=== PATIENT | male | born 1975 | race Caucasian/White ===

== ENCOUNTER 2023-02-26 16:55 | Emergency (ER) | payer OTHER, SELFPAY ==
[2023-02-26 17:04] VITALS: BP 152/101
[2023-02-26 17:28] LABS: % Basophils 0.7 % (0-2); % Eosinophils 1.5 % (0-6); % Immature Granulocytes 0.5 % (0-0.5); % Lymphocytes 27.6 % (20.5-51.1); % Monocytes 7.1 % (1.7-9.3); % Neutrophils 62.6 % (42.2-75.2); Absolute Basophils 0.1 10^3/uL (0-0.2); Absolute Eosinophils 0.1 10^3/uL (0-0.7); Absolute Lymphocytes 2.4 10^3/uL (1.2-3.4); Absolute Monocytes 0.6 10^3/uL (0.1-0.6); Absolute Neutrophils 5.5 10^3/uL (1.4-6.5); Hematocrit 44.6 % (39.0-52.0); Hemoglobin 15.3 g/dL (13.0-18.0); Mean Corp Hgb Conc. 34.3 g/dL (33.0-37.0); Mean Corpuscular Volume 84.6 fL (80.0-94.0); Mean Platelet Volume 11.3 fL (7.4-10.4); Nucleated Red Blood Cells % 0 % (-); Platelet Count 213 10^3/uL (130-400); Red Blood Cell Count 5.27 10^6/uL (4.70-6.10); Red Cell Dist. Width 13.8 % (11.5-14.5); White Blood Cell Count 8.7 10^3/uL (4.8-10.8)
[2023-02-26 17:42] LABS: ALT (SGPT) 39 U/L (0-50); AST (SGOT) 28 U/L (17-59); Alkaline Phosphatase 77 U/L (38-126); Blood Urea Nitrogen 20 mg/dl (9-20); Calcium 9.6 mg/dl (8.4-10.2); Carbon Dioxide 28 mmol/L (22-30); Chloride 102 mmol/L (98-107); Glucose 219 mg/dl (70-99); Potassium 4.2 mmol/L (3.5-5.1); Sodium 137 mmol/L (135-145); Total Bilirubin 0.6 mg/dl (0.2-1.3); Total Protein 6.9 g/dl (6.3-8.2); eGFR > 60.00
[2023-02-26 17:52] LABS: Troponin I < 0.012 ng/ml
[2023-02-26 18:32] VITALS: BP 171/108
--- NOTE | 2023-02-26 18:46 | ED.GENMED ---
History of Present Illness
General
Chief Complaint: Chest Pain
Source: patient and spouse
Time Seen by Provider: 02/26/23 18:38
Travel History
Have you had any contact with someone who has COVID-19?: No
Do you have any symptoms of coronavirus? Fever > 100 degrees, chills, cough, shortness of breath, sore throat, loss of taste or smell, muscle aches, or headache?: No
History of Present Illness
History of Present Illness:
This patient is a 47-year-old male presents to the emergency department complaints of left-sided chest pain that he noticed when he awoke at approximately 8 AM. The pain has been constant throughout the day is described as 'tender', not abrupt in
onset, not ripping or tearing quality. There are no exacerbating relieving factors and it is not pleuritic in nature. He denies associated dyspnea, leg swelling, back pain, neck pain, headache, dizziness, numbness, tingling, abdominal pain, or
other complaints.
Past History
Past History
ED Past Medical History: CVA (Presumed right MCA stroke August 2022), HTN, Hypercholesterolemia, IDDM, Psychiatric (Anxiety) and Other (Diverticulosis / diverticulitis)
ED Past Surgical History: None
Social History
Tobacco: Non-smoker
Alcohol: None
Drug: None
Personal: Single
Living: with family
Employment: Employed
Family History
Family History: Diabetes
Phy Exam
Physical Exam
Physical Exam:
GENERAL: Alert , in no apparent distress, pleasant, extremely well-appearing
EYE: pupils equal and reactive
NECK: Supple, no significant adenopathy.
ENT: o/p clr, mmm.
CARDIAC: Regular rate and rhythm .
LUNGS: Clear breath sounds bilaterally, no acute respiratory distress, no wheezes/rales/rhonchi
ABDOMEN: Soft, without focal tenderness, no r/g, no cvat
NEUROLOGICAL: Alert and oriented, no focal neuro deficits
SKIN: Warm and dry, skin intact.
MUSCULOSKELETAL: No edema, well perfused.
PSYCH: Normal and appropriate interaction.
Scores
Heart Score for Chest Pain Patients
STEMI patient?: Not applicable
Course
Orders/Labs/Results
Orders:
Orders
02/26/23 16:57
Electrocardiogram (*1) Urgent
Reason for Study: Chest Pain
EKG- Treatment ONCE
02/26/23 17:15
Complete Blood Count/With Diff Urgent
Comprehensive Metabolic Panel Urgent
Troponin I Urgent
02/26/23 18:45
CXR2 [CR Chest - 2 Views ] Stat
Comment:
Reason For Exam: cp
02/26/23 20:04
Troponin I Urgent
Abnormal Lab Results
02/26/23
17:15
MPV 11.3 H fL
(7.4-10.4)
Glucose 219 H mg/dl
(70-99)
02/26/23 17:15
02/26/23 17:15
Vital Signs
Initial and Last Documented VS:
Initial Vital Signs
Temp Pulse Resp BP Pulse Ox
99.4 F 100 16 152/101 100
02/26/23 17:04 02/26/23 17:04 02/26/23 17:04 02/26/23 17:04 02/26/23 17:04
Last Documented Vital Signs
Temp Pulse Resp BP Pulse Ox
99.4 F 99 20 148/94 99
02/26/23 17:04 02/26/23 18:32 02/26/23 18:32 02/26/23 20:40 02/26/23 20:40
*Critical Care Note
Total Time (30-74mins, 75-104mins- exclusive of procedures): Not Applicable
Update Note
Update Note:
Patient presents to the Emergency Department with chest pain
Number and Complexity of Problems Addressed at the Encounter
� Chronic conditions affecting care:
� Acute Exacerbation and/or Progression of Chronic Illness:
� Differential Diagnosis includes: But not limited to ACS, pleurisy, musculoskeletal pain, pericarditis, etc. etc.
Amount and/or Complexity of Data to be Reviewed and Analyzed
� I performed an independent evaluation of and my interpretation is:
EKG: Read by me, normal sinus rhythm, normal rate, normal axis, no ischemia
CT:
Xrays:
Laboratory Studies:
Other:
� Review of other/old records reveals:
� Clinical information was obtained by an independent historian: who is at bedside
� Prescriptions/Medications Considered but not given:
� Further testing considered but not performed:
Risk of Complications and/or Morbidity or Mortality of Patient Management
� Social determinants of health affecting care:
� Discussion with other providers (PCP, Hospitalists, Consultants, etc):
� Escalation of care including admission/observation vs risk of discharge considered:
ED Attending Note
-
Portions of this chart may have been created with voice recognition software.� Occasional wrong word or��sound alike� substitutions may have occurred due to the inherent limitations of voice recognition software.
Discharge Plan
Departure
Patient Disposition: Home (Routine Discharge)
Patient with high blood pressure during this ER visit?: Yes
Condition: Good
Discharge Problem:
Chest pain
Instructions: Chest Pain PCP Follow Up, BLOOD PRESSURE
Prescriptions:
No Action
atorvastatin 40 MG tablet
40 mg PO HS
metoprolol tartrate 100 mg tablet
100 mg PO BID
insulin aspart U-100 [Novolog FlexPen U-100 Insulin] 100 unit/mL (3 mL) insulin pen
0 sliding scale dose SC MEALS
Patient Comments:
Patient is taking 30-40 units with each meal, patient is targeting a blood sugar of 83 at home
Levemir FlexPen 100 unit/mL (3 mL) insulin pen
60 unit SC BID
valsartan-hydrochlorothiazide 320-12.5 mg tablet
1 tab PO DAILY
Jardiance 10 mg tablet
10 mg PO DAILY
acetaminophen 500 mg Tablet
1,000 mg PO DAILYPRN PRN (Reason: mild pain)
ciclopirox 8 % solution
1 applic TOPICAL DAILY
clopidogrel 75 mg Tablet
75 mg PO DAILY Qty: 21 0RF
Rx Instructions:
after this then stop
aspirin 81 mg Tablet,Delayed Release (Dr/Ec)
81 mg PO DAILY Qty: 0 0RF
clindamycin HCl 150 mg capsule
450 mg PO TID 10 Days Qty: 90 0RF
fluticasone propionate [24 Hour Allergy Relief] 50 mcg/actuation spray,suspension
1 spray intranasal DAILY Qty: 16 0RF
Referrals:
Ja Pierce MD [Family Provider] - Follow up in 2-3 days
Activity Restrictions/Additional Instructions:
IF YOU DEVELOP RECURRENT/WORSENING/NEW CHEST PAIN, FEVER, VOMITING, TROUBLE BREATHING, OR OTHER WORRISOME SIGNS, GO TO THE ER IMMEDIATELY!
Interventions
Interventions:
*Risk Screen - Suicide Last Done: 02/26/23 18:32
*General Assessment Last Done: 02/26/23 18:32
*Neglect/Abuse Screening Last Done: 02/26/23 18:32
ED- Fall Risk Assessment Last Done: 02/26/23 18:32
*ED COVID-19 Vaccine History Last Done: 02/26/23 17:04
*Nursing Disposition Last Done: 02/26/23 20:42
ED- Cardiac Assessment Last Done: 02/26/23 18:32
Discharge Date and Time
Discharge Date/Time: 02/26/23 20:45
[2023-02-26 20:35] LABS: Troponin I < 0.012 ng/ml
[2023-02-26 20:40] VITALS: BP 148/94
== END 2023-02-26 20:45 | disposition home or self-care (01) ==
LOC: EMR 16:55
PROVIDERS: EMERGENCY PHYSICIAN Emergency Medicine; FAMILY PHYSICIAN Internal Medicine
DX: R07.89 Other chest pain (principal); I10 Essential (primary) hypertension; E78.00 Pure hypercholesterolemia, unspecified; E11.9 Type 2 diabetes mellitus without complications; F41.9 Anxiety disorder, unspecified; K57.90 Diverticulosis of intestine, part unspecified, without perforation or abscess without bleeding; Z79.4 Long term (current) use of insulin; Z88.0 Allergy status to penicillin; Z91.048 Other nonmedicinal substance allergy status; Z79.82 Long term (current) use of aspirin
CPT/HCPCS: 99284; 71046; 80053; 84484; 85025; 93005

== ENCOUNTER 2023-05-21 20:59 | Emergency (ER) | payer OTHER, SELFPAY ==
[2023-05-21] VITALS (11 sets, daily range): BP systolic 139–217; BP diastolic 98–141
[2023-05-21 21:55] LABS: % Basophils 0.6 % (0-2); % Eosinophils 2.6 % (0-6); % Immature Granulocytes 0.4 % (0-0.5); % Lymphocytes 17.9 % (20.5-51.1); % Neutrophils 72.5 % (42.2-75.2); Absolute Basophils 0.1 10^3/uL (0-0.2); Absolute Eosinophils 0.3 10^3/uL (0-0.7); Absolute Lymphocytes 1.9 10^3/uL (1.2-3.4); Absolute Monocytes 0.6 10^3/uL (0.1-0.6); Absolute Neutrophils 7.7 10^3/uL (1.4-6.5); Hematocrit 47.2 % (39.0-52.0); Hemoglobin 15.6 g/dL (13.0-18.0); Mean Corp Hgb Conc. 33.1 g/dL (33.0-37.0); Mean Corpuscular Hgb 28.7 pg (27.0-31.0); Mean Corpuscular Volume 86.9 fL (80.0-94.0); Mean Platelet Volume 11.7 fL (7.4-10.4); Nucleated Red Blood Cells % 0 % (-); Platelet Count 189 10^3/uL (130-400); Red Blood Cell Count 5.43 10^6/uL (4.70-6.10); Red Cell Dist. Width 13.3 % (11.5-14.5); White Blood Cell Count 10.6 10^3/uL (4.8-10.8)
[2023-05-21 22:12] LABS: ALT (SGPT) 32 U/L (0-50); AST (SGOT) 26 U/L (17-59); Albumin 4.5 g/dl (3.5-5.0); Alkaline Phosphatase 77 U/L (38-126); Blood Urea Nitrogen 21 mg/dl (9-20); Calcium 9.8 mg/dl (8.4-10.2); Carbon Dioxide 28 mmol/L (22-30); Chloride 97 mmol/L (98-107); Glucose 379 mg/dl (70-99); Potassium 4.5 mmol/L (3.5-5.1); Sodium 135 mmol/L (135-145); Total Bilirubin 0.5 mg/dl (0.2-1.3); Total Protein 7.5 g/dl (6.3-8.2); eGFR > 60.00
[2023-05-21 22:15] LABS: Troponin I < 0.012 ng/ml
--- NOTE | 2023-05-21 22:34 | ED.GENMED ---
History of Present Illness
General
Chief Complaint: Headache
Source: patient and records
Exam Limitations: none
Time Seen by Provider: 05/21/23 21:41
Nursing documentation reviewed up to this point in time: agreed with
Travel History
Have you had any contact with someone who has COVID-19?: No
Do you have any symptoms of coronavirus? Fever > 100 degrees, chills, cough, shortness of breath, sore throat, loss of taste or smell, muscle aches, or headache?: No
History of Present Illness
History of Present Illness:
48-year-old male with a past medical history of hypertension, hyperlipidemia, diabetes, IBS, history of CVA who presents to the emergency department for evaluation of headache. Patient reports onset of symptoms gradually this evening at around 6�8
PM. He reports headache has becomes quite severe. Located mainly in occipital region radiates to the top of the head; he describes a throbbing sensation 'like a heartbeat in my head.' No clear triggering or relieving factors noted. He reports
some associated nausea but denies any vomiting. He reports some mild dizziness. He denies any change in his vision or speech. Denies any focal weakness, numbness, tingling in his extremities. He does note that his blood pressure was severely
elevated when he checked it in the setting of this headache; he reports that he is on metoprolol twice daily and has been compliant without missed doses. He denies any history of trauma to his head tonight but does note that he had a mechanical
fall with occipital head trauma 2 weeks ago.
Past History
Past History
ED Past Medical History: CVA (Presumed right MCA stroke August 2022), HTN, Hypercholesterolemia, IDDM, Psychiatric (Anxiety) and Other (Diverticulosis / diverticulitis)
ED Past Surgical History: None
Social History
Tobacco: Non-smoker
Alcohol: None
Drug: None
Personal: Single
Living: with family
Employment: Employed
Family History
Family History: Diabetes
Review of Systems
Review of Systems
All Other Systems: ROS reviewed and negative except as documented in HPI and ROS
Constitutional: Denies fever or chills
EENT: Denies sore throat or runny nose
Respiratory: Denies cough or trouble breathing
Cardiac: Denies chest pain or palpitations
ABD/GI: Reports nausea; Denies abdominal pain, vomiting or diarrhea
: Denies flank pain
Musculoskeletal: Denies neck pain or back pain
Neurological: Reports dizzy and headache; Denies weakness or numbness
Phy Exam
Physical Exam
Physical Exam:
General: Awake, alert, oriented x3; he is sitting up very comfortably in the bed and does not appear to be in any acute distress
Head: Normocephalic, atraumatic
Eyes: Conjunctiva normal, EOMI, pupils equal round and reactive to light bilaterally
Throat: Airway intact, handling secretions
Neck: Trachea midline, supple without meningismus
Lungs: Clear to auscultation bilaterally, no wheezing, rales, rhonchi
Heart: Tachycardia with regular rhythm, no murmurs, gallops, or rubs
Neuro: Cranial nerves intact 2 through 12, speech is fluid without dysarthria or aphasia, no limb ataxia, motor and sensory function intact and symmetric upper and lower extremities
Skin: no rash
Extremities: No edema in extremities, warm and well-perfused
Scores
Heart Failure Risk
Heart Failure Risk Score: Not Applicable
Heart Score for Chest Pain Patients
STEMI patient?: Not applicable
Withdrawal Assessment of Alcohol
Withdrawal Assessment Completed?: Not applicable
Course
Orders/Labs/Results
Orders:
Orders
05/21/23 21:01
Electrocardiogram (*1) Urgent
Reason for Study: Chest Pain
EKG- Treatment ONCE
05/21/23 21:41
CT Head W/o Iv Contrast Urgent
Comment:
Reason For Exam: headache, severe HTN
05/21/23 21:42
Electrocardiogram (*1) Urgent
Reason for Study: Hypertension, Benign
EKG- Treatment ONCE
05/21/23 21:46
Complete Blood Count/With Diff Urgent
Comprehensive Metabolic Panel Urgent
Troponin I Urgent
05/21/23 22:22
0.9% Sodium Chloride 1000 ml [Nss] 1,000 ml IV BOLUS
Labetalol HCl [Trandate] 10 mg IV NOW STA
05/21/23 22:43
Diphenhydramine [Benadryl] 25 mg IV NOW STA
Insulin Aspart [NOVOLOG vial] 5 units SC NOW STA
Ketorolac [Toradol] 15 mg IV NOW STA
Metoclopramide [Reglan] 10 mg IV NOW STA
05/21/23 22:48
Metoprolol [Lopressor] 100 mg PO NOW STA
Abnormal Lab Results
05/21/23 05/21/23
21:46 23:43
MPV 11.7 H fL
(7.4-10.4)
Absolute Neuts (auto) 7.7 H 10^3/uL
(1.4-6.5)
Lymphocytes % 17.9 L %
(20.5-51.1)
Chloride 97 L mmol/L
(98-107)
BUN 21 H mg/dl
(9-20)
Glucose 379 H mg/dl
(70-99)
POC Glucose 304 H mg/dl
(70-99)
05/21/23 21:46
05/21/23 21:46
Vital Signs
Initial and Last Documented VS:
Initial Vital Signs
Temp Pulse Resp BP Pulse Ox
36.9 C 104 22 217/141 99
05/21/23 21:02 05/21/23 21:02 05/21/23 21:02 05/21/23 21:02 05/21/23 21:02
Last Documented Vital Signs
Temp Pulse Resp BP Pulse Ox
36.9 C 97 19 165/102 98
05/21/23 21:02 05/21/23 22:45 05/21/23 22:45 05/21/23 22:58 05/21/23 22:45
MDM/Problems Addressed
Differential Diagnosis Includes:
Tension headache, migraine headache, intracranial hemorrhage including subarachnoid hemorrhage and subdural/epidural hematoma, symptomatic hypertension
MDM/Problems Addressed:
48-year-old male presents for evaluation of gradual onset headache that has become quite severe�started few hours prior to arrival and has been constant. No recent trauma to his head but did have minor fall 2 weeks ago during which he hit his head.
He has been hypertensive with this headache. He arrived was severely hypertensive to 217/141�this was improved to the 190s over 100s on my assessment. He is also mildly tachycardic but the rest of his vitals are within acceptable range. His
physical exam is as documented. Will plan to check basic labs. Will check EKG given his severe hypertension. Will check CT head. Will provide fluids and treat symptomatically. Provide some labetalol for hypertension. Monitor closely reassess
after the above.
Labs reviewed: CBC unremarkable, CMP shows significant hyperglycemia at 379 fortunately with no signs of DKA. Could be that partly his headache is due to dehydration with significant hyperglycemia. He is currently receiving IV fluids and will
provide some low-dose insulin. Awaiting results of CT head.
CT head shows no acute pathology; patient receiving medications now will assess response. With negative CT within 6 hours of symptom onset this is sufficient to rule out subarachnoid hemorrhage, no signs of subdural/epidural hematoma. He has no
signs or symptoms to suggest meningitis. No risk factors for cerebral venous thrombosis in fact patient is on antiplatelets. While his blood pressure was high he has not had any seizures, change in mental status, visual disturbances or vomiting,
no neurologic deficits to suggest that this is PRES. Suspect his headache is likely multifactorial likely some degree of dehydration with his severe hyperglycemia could be some component of hypertension contributing, also likely tension headache he
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 Continue to monitor.
Clinical reassessment patient's blood pressure significantly improving, glucose improving. He says he is feeling much better headache resolved. He feels comfortable going home at this point; regarding his hyperglycemia he plans to follow-up with
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
him. He will follow-up with his primary doctor to discuss his blood pressure advised to keep track of the next few days at home. We spoke about return precautions and all questions were answered.
Chronic conditions affecting care:
Diabetes, hypertension
Chronic conditions affecting care: DM and HTN
Acute Exacerbation and/or Progression of Chronic Illness:
Acute exacerbation of hypertension managed with labetalol
Acute exacerbation of diabetes with severe hyperglycemia�treated with insulin and fluids
Acute Exacerbation and/or Progression of Chronic Illness: DM and HTN
*Radiology
Radiology exam reviewed: radiology read reviewed
*Pulse Oximetry
Patient hypoxic: no
*EKG
Interpreted by ED Provider?: Yes
Heart Rate: 101
Rate: tachycardiac
Rhythm: sinus and sinus tachycardia
[place]: normal axis
Interval: normal interval
QRS Pattern: normal QRS
Ischemia: non-specific ST changes
*Critical Care Note
Total Time (30-74mins, 75-104mins- exclusive of procedures): Not Applicable
Data Reviewed
Review of Other/Old Records Reveals: Labs and Records
Source: patient and records
ED Attending Note
-
Portions of this chart may have been created with voice recognition software.� Occasional wrong word or��sound alike� substitutions may have occurred due to the inherent limitations of voice recognition software.
Discharge Plan
Departure
Patient Disposition: Home (Routine Discharge)
Date of Disposition: 05/21/23
Time of Disposition: 23:47
Patient with high blood pressure during this ER visit?: Yes
Discharge Problem:
Headache, Acute hyperglycemia, Hypertension
Instructions: High Blood Sugar, Adult (DC), Headache, Adult (DC), BLOOD PRESSURE
Prescriptions:
No Action
atorvastatin 40 MG tablet
40 mg PO HS
metoprolol tartrate 100 mg tablet
100 mg PO BID
insulin aspart U-100 [Novolog FlexPen U-100 Insulin] 100 unit/mL (3 mL) insulin pen
0 sliding scale dose SC MEALS
Patient Comments:
Patient is taking 30-40 units with each meal, patient is targeting a blood sugar of 83 at home
Levemir FlexPen 100 unit/mL (3 mL) insulin pen
60 unit SC BID
valsartan-hydrochlorothiazide 320-12.5 mg tablet
1 tab PO DAILY
Jardiance 10 mg tablet
10 mg PO DAILY
acetaminophen 500 mg Tablet
1,000 mg PO DAILYPRN PRN (Reason: mild pain)
ciclopirox 8 % solution
1 applic TOPICAL DAILY
clopidogrel 75 mg Tablet
75 mg PO DAILY Qty: 21 0RF
Rx Instructions:
after this then stop
aspirin 81 mg Tablet,Delayed Release (Dr/Ec)
81 mg PO DAILY Qty: 0 0RF
clindamycin HCl 150 mg capsule
450 mg PO TID 10 Days Qty: 90 0RF
fluticasone propionate [24 Hour Allergy Relief] 50 mcg/actuation spray,suspension
1 spray intranasal DAILY Qty: 16 0RF
Activity Restrictions/Additional Instructions:
Thank you for visiting the Emergency Department at [facility].
1. Please schedule a follow up appointment as directed. Call first thing tomorrow morning to make an appointment.
2. If indicated, please take your medications as instructed and indicated on discharge paperwork.
3. If any of your symptoms do not improve, or persist, or become more severe within 6-12 hours, please return to the emergency department for further care.
4. Please return to the emergency department if you develop a headache, neck pain/stiffness, fever greater than 100.4F, chest pain, shortness of breath, persistent nausea, vomiting, slurred speech, difficulty walking, numbness/tingling, weakness,
signs of infection or any other symptoms that are worrisome to you.
Please call [phone] if you have any questions.
Interventions
Interventions:
*Risk Screen - Suicide Last Done: 05/21/23 21:02
*General Assessment Last Done: 05/21/23 22:37
*Neglect/Abuse Screening Last Done: 05/21/23 21:02
ED- Fall Risk Assessment Last Done: 05/21/23 23:49
*ED COVID-19 Vaccine History Last Done: 05/21/23 23:49
*Nursing Disposition Last Done: 05/21/23 23:48
ED- Neurological Assessment Last Done: 05/21/23 22:36
Discharge Date and Time
Print Language: MAURITANIAN
[2023-05-21] MEDS: NSS 1000 IV (22:42)
[2023-05-21] MEDS: TRANDATE 10 MG IV (22:43)
[2023-05-21] MEDS: NOVOLOG vial 5 UNITS SC (22:54)
[2023-05-21] MEDS: TORADOL 15 MG IV (22:55)
[2023-05-21] MEDS: BENADRYL 25 MG IV (22:55)
[2023-05-21] MEDS: REGLAN 10 MG IV (22:55)
[2023-05-21] MEDS: LOPRESSOR 100 MG PO (22:58)
[2023-05-21 23:45] LABS: Glucose - Point of Care 304 mg/dl (70-99)
== END 2023-05-21 23:52 | disposition home or self-care (01) ==
LOC: EMR 20:59
PROVIDERS: EMERGENCY PHYSICIAN Emergency Medicine; FAMILY PHYSICIAN Internal Medicine
DX: R51.9 Headache, unspecified (principal); E11.65 Type 2 diabetes mellitus with hyperglycemia; I10 Essential (primary) hypertension; E78.00 Pure hypercholesterolemia, unspecified; K58.9 Irritable bowel syndrome, unspecified; Z86.73 Personal history of transient ischemic attack (TIA), and cerebral infarction without residual deficits
CPT/HCPCS: 99285; 96374; 96375 ×3; 96372; 96361; 70450; 80053; 82962; 84484; 85025; 93005

== ENCOUNTER 2024-01-01 04:34 | Emergency (ER) | payer OTHER, SELFPAY ==
[2024-01-01 04:46] VITALS: BP 226/144
[2024-01-01 04:53] VITALS: BMI 36.7
[2024-01-01] MEDS: ZOFRAN 4 MG IV (05:12)
[2024-01-01 05:15] VITALS: BP 203/114
[2024-01-01 05:17] LABS: % Basophils 0.6 % (0-2); % Eosinophils 2.6 % (0-6); % Immature Granulocytes 0.3 % (0-0.5); % Lymphocytes 30.8 % (20.5-51.1); % Monocytes 8.5 % (1.7-9.3); % Neutrophils 57.2 % (42.2-75.2); Absolute Basophils 0.1 10^3/uL (0-0.2); Absolute Eosinophils 0.3 10^3/uL (0-0.7); Absolute Monocytes 0.8 10^3/uL (0.1-0.6); Absolute Neutrophils 5.5 10^3/uL (1.4-6.5); Hematocrit 49.4 % (39.0-52.0); Hemoglobin 16.4 g/dL (13.0-18.0); Mean Corp Hgb Conc. 33.2 g/dL (33.0-37.0); Mean Corpuscular Hgb 28.8 pg (27.0-31.0); Mean Corpuscular Volume 86.8 fL (80.0-94.0); Nucleated Red Blood Cells % 0 % (-); Platelet Count 204 10^3/uL (130-400); Red Blood Cell Count 5.69 10^6/uL (4.70-6.10); Red Cell Dist. Width 13.2 % (11.5-14.5); White Blood Cell Count 9.6 10^3/uL (4.8-10.8)
[2024-01-01 05:39] LABS: ALT (SGPT) 43 U/L (0-50); AST (SGOT) 37 U/L (17-59); Albumin 4.1 g/dl (3.5-5.0); Alkaline Phosphatase 61 U/L (38-126); Blood Urea Nitrogen 23 mg/dl (9-20); Calcium 9.2 mg/dl (8.4-10.2); Carbon Dioxide 25 mmol/L (22-30); Chloride 104 mmol/L (98-107); Estimated Creatinine Clearance > 125 ml/min; Glucose 145 mg/dl (70-99); Potassium 4.1 mmol/L (3.5-5.1); Sodium 140 mmol/L (135-145); Total Bilirubin 0.3 mg/dl (0.2-1.3); Total Protein 7.1 g/dl (6.3-8.2); eGFR > 60.00
[2024-01-01 05:42] LABS: Troponin I < 0.012 ng/ml
[2024-01-01 05:44] VITALS: BP 213/115
[2024-01-01 06:00] VITALS: BP 160/104
[2024-01-01 07:00] VITALS: BP 169/99
[2024-01-01 08:00] VITALS: BP 169/108
--- NOTE | 2024-01-01 09:33 | ED.GENMED ---
History of Present Illness
General
Chief Complaint: Blood Pressure Problem
Source: patient and spouse
Exam Limitations: none
Time Seen by Provider: 01/01/24 06:10
Nursing documentation reviewed up to this point in time: agreed with
History of Present Illness
History of Present Illness:
48-year-old male with past medical history as documented presents to the emergency room for evaluation of hypertension and headache. Patient reports that yesterday he had a scheduled appointment with his die cast die maker to follow-up on his blood
sugars. He says that while he was in the office he was noted to be hypertensive over 200. He was referred to the urgent care by his die cast die maker. He went to urgent care and says that his blood pressure had improved and he was recommended to
follow-up with his primary care physician. He has an appointment scheduled for today (01/01/2024) at 9 AM to discuss blood pressure management. He says he had been on metoprolol and valsartan for blood pressure management but this was discontinued
at some point in the past. He says that overnight last night he woke up and had a bad headache and he checked his blood pressure and noted that it was over 200. He says that he had a leftover dose of his metoprolol and so he took a dose of this
and came to the emergency to be assessed. Since arrival in the emergency room he says his headache has improved. He did have some nausea initially and apparently received some Zofran in triage and this seems to have resolved. He denies any chest
pain. He denies any shortness of breath. Denies any dizziness. Denies any change in his vision or speech. Denies any focal weakness or numbness.
Past History
Past History
ED Past Medical History: CVA (Presumed right MCA stroke August 2022), HTN, Hypercholesterolemia, IDDM, Psychiatric (Anxiety) and Other (Diverticulosis / diverticulitis)
ED Past Surgical History: None
Social History
Tobacco: Non-smoker
Alcohol: None
Drug: None
Personal: Single
Living: with family
Employment: Employed
Family History
Family History: Diabetes
Review of Systems
Review of Systems
All Other Systems: ROS reviewed and negative except as documented in HPI and ROS
Constitutional: Denies fever or chills
Respiratory: Denies trouble breathing
Cardiac: Denies chest pain, palpitations or syncope
ABD/GI: Reports nausea; Denies abdominal pain or vomiting
: Denies flank pain
Musculoskeletal: Denies neck pain or back pain
Neurological: Reports headache; Denies dizzy, weakness or numbness
Phy Exam
Physical Exam
Physical Exam:
General: Awake, alert, oriented x3; no acute distress
Head: Normocephalic, atraumatic
Eyes: Conjunctiva normal, EOMI, pupils equal round and reactive to light bilaterally
Throat: Airway intact, handling secretions
Neck: Trachea midline, supple without meningismus
Lungs: Clear to auscultation bilaterally, no wheezing, rales, rhonchi
Heart: Regular rate and rhythm, no murmurs, gallops, or rubs
Abd: Soft, non distended, nontender
Neuro: Cranial nerves intact 2 through 12, speech fluent no dysarthria or aphasia, no limb ataxia, motor and sensory function intact and symmetric proximally and distally in the upper and lower extremities, ambulatory with normal gait and no ataxia
Extremities: No edema in extremities, equal pulses in all extremities
Scores
Heart Failure Risk
Heart Failure Risk Score: Not Applicable
Heart Score for Chest Pain Patients
STEMI patient?: Not applicable
Withdrawal Assessment of Alcohol
Withdrawal Assessment Completed?: Not applicable
Course
Orders/Labs/Results
Orders:
Orders
01/01/24 04:35
ECG [Electrocardiogram (*1)] Urgent
Reason for Study: Chest Pain
EKG- Treatment ONCE
01/01/24 05:05
Complete Blood Count/With Diff Urgent
Comprehensive Metabolic Panel Urgent
Troponin I Urgent
01/01/24 05:09
Ondansetron Injectable [Zofran] 4 mg .ROUTE .STK-MED ONE
01/01/24 05:11
CT Head W/o Iv Contrast Urgent
Comment:
Reason For Exam: HTN w/ headache
Ondansetron Injectable [Zofran] 4 mg IV NOW STA
Abnormal Lab Results
01/01/24
05:05
MPV 12.0 H fL
(7.4-10.4)
Absolute Monos (auto) 0.8 H 10^3/uL
(0.1-0.6)
BUN 23 H mg/dl
(9-20)
Glucose 145 H mg/dl
(70-99)
01/01/24 05:05
01/01/24 05:05
Vital Signs
Initial and Last Documented VS:
Initial Vital Signs
Temp Pulse Resp BP Pulse Ox
36.9 C 100 22 226/144 100
01/01/24 04:46 01/01/24 04:46 01/01/24 04:46 01/01/24 04:46 01/01/24 04:46
Last Documented Vital Signs
Temp Pulse Resp BP Pulse Ox
36.9 C 88 19 169/108 100
01/01/24 04:46 01/01/24 08:30 01/01/24 08:30 01/01/24 08:00 01/01/24 08:15
MDM/Problems Addressed
Differential Diagnosis Includes:
Hypertension
MDM/Problems Addressed:
48-year-old male presents to the emergency room for hypertension associated with headache last night that has improved. Initially severely hypertensive to 226/144 and had some tachycardia in triage as well; blood pressure improved to 169/108 on my
assessment. He did take a dose of his metoprolol prior to coming to the emergency room. He had lab work sent in triage including a CBC and a CMP which were unremarkable. He had an EKG which showed sinus rhythm, troponin was undetectable. He had
a CT head which showed no acute pathology. His symptoms have improved as has his blood pressure. He has an appointment scheduled for 9 AM to discuss long-term management of his blood pressure with his primary care physician. At this point he is
stable for discharge and he will go directly to his appointment with his primary doctor. Spoke about return precautions all questions answered.
Chronic conditions affecting care:
Hypertension
Acute Exacerbation and/or Progression of Chronic Illness:
Acute hypertension managed as above
Acute Exacerbation and/or Progression of Chronic Illness: HTN
*Radiology
Radiology exam reviewed: radiology read reviewed
*Pulse Oximetry
Patient hypoxic: no
*EKG
Interpreted by ED Provider?: Yes
Heart Rate: 89
Rate: normal
Rhythm: sinus
[place]: normal axis
Interval: normal interval
QRS Pattern: normal QRS
Ischemia: non-specific ST changes
*Critical Care Note
Total Time (30-74mins, 75-104mins- exclusive of procedures): Not Applicable
Data Reviewed
Review of Other/Old Records Reveals: Labs and Records
Source: patient and spouse
Patient Management
Social determinants of health affecting care: Strong social support
ED Attending Note
-
Portions of this chart may have been created with voice recognition software.� Occasional wrong word or��sound alike� substitutions may have occurred due to the inherent limitations of voice recognition software.
Discharge Plan
Departure
Patient Disposition: Home (Routine Discharge)
Date of Disposition: 01/01/24
Time of Disposition: 08:37
Patient with high blood pressure during this ER visit?: Yes
Discharge Problem:
Hypertensive urgency
Instructions: High Blood Pressure (DC)
Prescriptions:
No Action
atorvastatin 40 MG tablet
40 mg PO HS
metoprolol tartrate 100 mg tablet
100 mg PO BID
insulin aspart U-100 [Novolog FlexPen U-100 Insulin] 100 unit/mL (3 mL) insulin pen
0 sliding scale dose SC MEALS
Patient Comments:
Patient is taking 30-40 units with each meal, patient is targeting a blood sugar of 83 at home
Levemir FlexPen 100 unit/mL (3 mL) insulin pen
60 unit SC BID
valsartan-hydrochlorothiazide 320-12.5 mg tablet
1 tab PO DAILY
Jardiance 10 mg tablet
10 mg PO DAILY
acetaminophen 500 mg Tablet
1,000 mg PO DAILYPRN PRN (Reason: mild pain)
aspirin 81 mg Tablet,Delayed Release (Dr/Ec)
81 mg PO DAILY Qty: 0 0RF
fluticasone propionate [24 Hour Allergy Relief] 50 mcg/actuation spray,suspension
1 spray intranasal DAILY Qty: 16 0RF
Referrals:
Shala Drake PA-C [Family Provider] - 01/01/24 9:00 am
Activity Restrictions/Additional Instructions:
Thank you for visiting the Emergency Department at [facility].
1. Please schedule a follow up appointment as directed. Call first thing tomorrow morning to make an appointment.
2. If indicated, please take your medications as instructed and indicated on discharge paperwork.
3. If any of your symptoms do not improve, or persist, or become more severe within 6-12 hours, please return to the emergency department for further care.
4. Please return to the emergency department if you develop a headache, neck pain/stiffness, fever greater than 100.4F, chest pain, shortness of breath, persistent nausea, vomiting, slurred speech, difficulty walking, numbness/tingling, weakness,
signs of infection or any other symptoms that are worrisome to you.
Please call [phone] if you have any questions.
Interventions
Interventions:
*Risk Screen - Suicide Last Done: 01/01/24 04:46
*General Assessment Last Done: 01/01/24 04:56
*Neglect/Abuse Screening Last Done: 01/01/24 04:46
ED- Fall Risk Assessment Last Done: 01/01/24 05:24
*ED COVID-19 Vaccine History Last Done: 01/01/24 04:56
*Nursing Disposition Last Done: 01/01/24 08:44
ED- Cardiac Assessment Last Done: 01/01/24 05:24
ED- Neurological Assessment Last Done: 01/01/24 05:24
ED- Pulmonary Assessment Last Done: 01/01/24 05:24
Discharge Date and Time
Discharge Date/Time: 01/01/24 08:45
Print Language: CZECH
== END 2024-01-01 08:45 | disposition home or self-care (01) ==
LOC: EMR 04:34
PROVIDERS: Emergency Medicine; EMERGENCY PHYSICIAN Emergency Medicine; FAMILY PHYSICIAN Physician Assistant
DX: I16.0 Hypertensive urgency (principal); E11.9 Type 2 diabetes mellitus without complications; E78.00 Pure hypercholesterolemia, unspecified; Z86.73 Personal history of transient ischemic attack (TIA), and cerebral infarction without residual deficits
CPT/HCPCS: 99284; 96374; 70450; 80053; 84484; 85025; 93005

== ENCOUNTER 2024-03-17 10:01 | Emergency (ER) | payer OTHER, SELFPAY ==
[2024-03-17] VITALS (7 sets, daily range): BP systolic 158–198; BP diastolic 97–120; BMI 36.7
[2024-03-17 10:43] LABS: COVID-19 Antigen Negative (Negative)
[2024-03-17 11:34] LABS: % Basophils 0.8 % (0-2); % Eosinophils 2.8 % (0-6); % Immature Granulocytes 0.3 % (0-0.5); % Lymphocytes 23.2 % (20.5-51.1); % Monocytes 6.4 % (1.7-9.3); % Neutrophils 66.5 % (42.2-75.2); Absolute Basophils 0.1 10^3/uL (0-0.2); Absolute Eosinophils 0.2 10^3/uL (0-0.7); Absolute Lymphocytes 1.7 10^3/uL (1.2-3.4); Absolute Monocytes 0.5 10^3/uL (0.1-0.6); Absolute Neutrophils 4.8 10^3/uL (1.4-6.5); Hematocrit 45.7 % (39.0-52.0); Hemoglobin 15.7 g/dL (13.0-18.0); Mean Corp Hgb Conc. 34.4 g/dL (33.0-37.0); Mean Corpuscular Hgb 28.8 pg (27.0-31.0); Mean Corpuscular Volume 83.9 fL (80.0-94.0); Mean Platelet Volume 11.6 fL (7.4-10.4); Nucleated Red Blood Cells % 0 % (-); Platelet Count 191 10^3/uL (130-400); Red Blood Cell Count 5.45 10^6/uL (4.70-6.10); Red Cell Dist. Width 13.4 % (11.5-14.5); White Blood Cell Count 7.2 10^3/uL (4.8-10.8)
[2024-03-17 11:49] LABS: ALT (SGPT) 33 U/L (0-50); AST (SGOT) 27 U/L (17-59); Albumin 3.9 g/dl (3.5-5.0); Alkaline Phosphatase 68 U/L (38-126); Blood Urea Nitrogen 18 mg/dl (9-20); Calcium 9.1 mg/dl (8.4-10.2); Carbon Dioxide 27 mmol/L (22-30); Chloride 100 mmol/L (98-107); Estimated Creatinine Clearance > 125 ml/min; Glucose 260 mg/dl (70-99); Potassium 4.5 mmol/L (3.5-5.1); Sodium 135 mmol/L (135-145); Total Bilirubin 0.9 mg/dl (0.2-1.3); Total Protein 6.7 g/dl (6.3-8.2); eGFR > 60.00
[2024-03-17 12:17] LABS: Troponin I < 0.012 ng/ml
[2024-03-17] MEDS: TYLENOL 1000 MG PO (13:23)
[2024-03-17 16:04] LABS: Troponin I < 0.012 ng/ml
--- NOTE | 2024-03-17 16:47 | ED.GENMED ---
History of Present Illness
General
Chief Complaint: Chest Pain
Source: patient and spouse
Time Seen by Provider: 03/17/24 12:46
History of Present Illness
History of Present Illness:
This a 48-year-old male who presents with headache, chest pain, lightheadedness, fatigue since yesterday. The patient states started last night. He states that started in early evening because when he went to a friend's house to watch the Super
Bowl he soreness laying on the couch. He does have a history of hypertension but states he did not take his pills today. Patient also has a history of diabetes. No fevers. No motor weakness. No vomiting.
Past History
Past History
ED Past Medical History: CVA (Presumed right MCA stroke August 2022), HTN, Hypercholesterolemia, IDDM, Psychiatric (Anxiety) and Other (Diverticulosis / diverticulitis)
ED Past Surgical History: None
Social History
Tobacco: Non-smoker
Alcohol: None
Drug: None
Personal: Single
Living: with family
Employment: Employed
Family History
Family History: Diabetes
Phy Exam
Physical Exam
Physical Exam:
CONSTITUTIONAL Patient alert and oriented to person, place and time. Well-appearing. Vital signs reviewed.
HEAD atraumatic, normocephalic.
EYES eyelids normal to inspection, Extraocular muscles intact, Conjunctiva normal, Sclera normal.
NECK normal range of motion, Trachea midline, no jugular venous distention.
RESPIRATORY CHEST No respiratory distress noted, Chest expansion equal, Bilateral breath sounds clear.
CARDIOVASCULAR regular rate and rhythm, Heart sounds normal.
ABDOMEN abdomen nontender, Bowel sounds normal. No distention.
BACK normal inspection, no obvious deformities
UPPER EXTREMITY range of motion normal, Motor strength normal, no cyanosis, no edema.
LOWER EXTREMITY range of motion normal, Motor strength normal, no cyanosis, no edema.
NEURO Speech normal, No focal motor deficits, Gonsalo coma scale 15, Memory normal, Cranial Nerves intact to screening exam. No pronator drift
SKIN skin warm, dry, and normal in color.
Scores
Heart Score for Chest Pain Patients
STEMI patient?: No
History: Slightly or Non-Suspicious
ECG: Nonspecific Repolarization
Age: >45 - <65 years
Risk Factors: >/= 3 Risk Factors or History of CAD
Troponin: </= Normal Limit
Heart Score for Chest Pain Patients: 4
Heart Score Risk: 20.3% MACE over next 6 weeks
Course
Orders/Labs/Results
Orders:
Orders
03/17/24 10:04
Electrocardiogram (*1) Urgent
Reason for Study: Chest Pain
03/17/24 10:05
EKG- Treatment ONCE
03/17/24 10:15
COVID-19 Antigen Urgent
Source: Nasal Swab
Influenza A+B Rapid Molecular Urgent
CHRISTINA Source: Nasal Swab
Specimen Description:
03/17/24 11:23
Complete Blood Count/With Diff Urgent
Comprehensive Metabolic Panel Urgent
TSH Reflex To Free T4 Urgent
Troponin I Urgent
03/17/24 13:02
CT Head W/o Iv Contrast Urgent
Comment:
Reason For Exam: WRIGHT, uncontrolled HTN
CR Chest - 2 Views Urgent
Comment:
Reason For Exam: CP
03/17/24 13:03
Acetaminophen [Tylenol] 1,000 mg PO NOW STA
03/17/24 15:17
Electrocardiogram (*1) Urgent
Reason for Study: Chest Pain
EKG- Treatment ONCE
Vital Signs- Treatment ONCE
Frequency: Once
03/17/24 15:25
Troponin I Urgent
03/17/24 16:56
Metoprolol [Lopressor] 100 mg PO NOW STA
03/17/24 17:06
Valsartan [Diovan] 320 mg PO NOW STA
Abnormal Lab Results
03/17/24
11:23
MPV 11.6 H fL
(7.4-10.4)
Glucose 260 H mg/dl
(70-99)
03/17/24 11:23
03/17/24 11:23
Vital Signs
Initial and Last Documented VS:
Initial Vital Signs
Temp Pulse Resp BP Pulse Ox
98.0 F 101 20 198/120 99
03/17/24 10:08 03/17/24 10:08 03/17/24 10:08 03/17/24 10:08 03/17/24 10:08
Last Documented Vital Signs
Temp Pulse Resp BP Pulse Ox
98.0 F 93 13 167/109 100
03/17/24 10:08 03/17/24 16:45 03/17/24 16:45 03/17/24 16:00 03/17/24 16:45
MDM/Problems Addressed
MDM/Problems Addressed:
Chest pain, headache, acute uncontrolled hypertension, acute hyperglycemia
*Pulse Oximetry
Patient hypoxic: no
*EKG
Interpreted by ED Provider?: Yes
Interpretation: abnormal
Rate: normal
Rhythm: sinus
[place]: normal axis
QRS Pattern: normal QRS
Ischemia: no ischemia
*Direct Sales Professional Interpretation
Rate: normal
Interpretation: normal
Rhythm: sinus
*Critical Care Note
Total Time (30-74mins, 75-104mins- exclusive of procedures): Not Applicable
Data Reviewed
Review of Other/Old Records Reveals: Labs (Prior labs reviewed)
Source: patient and spouse
Prescriptions/Medications Considered But Not Given:
Considered IV antihypertensives but patient has not taken his medications today. Will prescribe his medications but advised that is imperative he has follow-up tomorrow for repeat blood pressure evaluation. He may need additional agents.
Patient Management
Escalation/DeEscalation of care consider admission/obs:
Troponin x [address]KG [address] negative. Okay for discharge but strongly encouraged close outpatient follow-up for blood pressure management
Update Note
Update Note:
Lengthy discussion with the patient. Counseled on importance of starting to walk and exercise. Proper diet. Proper follow-up. Patient agrees.
ED Attending Note
-
Portions of this chart may have been created with voice recognition software.� Occasional wrong word or��sound alike� substitutions may have occurred due to the inherent limitations of voice recognition software.
Discharge Plan
Departure
Patient Disposition: Home (Routine Discharge)
Date of Disposition: 03/17/24
Time of Disposition: 16:47
Patient with high blood pressure during this ER visit?: Yes
Discharge Problem:
Chest pain, Headache, Uncontrolled hypertension
Instructions: Chest Pain CBC Follow Up, BLOOD PRESSURE
Prescriptions:
New
pantoprazole [Protonix] 40 mg tablet,delayed release (DR/EC)
40 mg PO DAILY Qty: 30 0RF
Rx Instructions:
Please take 30 minutes prior to eating or drinking anything in the morning.
No Action
atorvastatin 40 MG tablet
40 mg PO HS
metoprolol tartrate 100 mg tablet
100 mg PO BID
insulin aspart U-100 [Novolog FlexPen U-100 Insulin] 100 unit/mL (3 mL) insulin pen
0 sliding scale dose SC MEALS
Patient Comments:
Patient is taking 30-40 units with each meal, patient is targeting a blood sugar of 83 at home
Levemir FlexPen 100 unit/mL (3 mL) insulin pen
60 unit SC BID
valsartan-hydrochlorothiazide 320-12.5 mg tablet
1 tab PO DAILY
Jardiance 10 mg tablet
10 mg PO DAILY
acetaminophen 500 mg Tablet
1,000 mg PO DAILYPRN PRN (Reason: mild pain)
aspirin 81 mg Tablet,Delayed Release (Dr/Ec)
81 mg PO DAILY Qty: 0 0RF
fluticasone propionate [24 Hour Allergy Relief] 50 mcg/actuation spray,suspension
1 spray intranasal DAILY Qty: 16 0RF
Referrals:
Shala Drake PA-C [Family Provider] -
Activity Restrictions/Additional Instructions:
Your blood pressure was elevated while in the Emergency Department, please have your doctor re-evaluate it in the next 48 hours as untreated hypertension may lead to serious complications.
Please see your doctor or cardiology next 2 to 3 days for follow-up and reevaluation to reassess your blood pressure. Return immediately for worsening symptoms, vomiting, headache, weakness of any kind or any other concerns
Interventions
Interventions:
*Risk Screen - Suicide Last Done: 03/17/24 11:15
*General Assessment Last Done: 03/17/24 11:15
*Neglect/Abuse Screening Last Done: 03/17/24 11:15
*Nursing Disposition Last Done: 03/17/24 17:41
ED- Cardiac Assessment Last Done: 03/17/24 11:15
ED- Neurological Assessment Last Done: 03/17/24 11:15
Discharge Date and Time
Discharge Date/Time: 03/17/24 17:45
Print Language: FAROESE
[2024-03-17] MEDS: LOPRESSOR 100 MG PO (17:28)
[2024-03-17] MEDS: DIOVAN 320 MG PO (17:28)
[2024-03-17 21:07] LABS: TSH Reflex To Free T4 1.81 uIU/ml (0.47-4.68)
== END 2024-03-17 17:45 | disposition home or self-care (01) ==
LOC: EMR 10:01
PROVIDERS: Student in an Organized Health Care Education/Training Program; EMERGENCY PHYSICIAN Emergency Medicine; FAMILY PHYSICIAN Physician Assistant
DX: R07.9 Chest pain, unspecified (principal); I10 Essential (primary) hypertension; E11.9 Type 2 diabetes mellitus without complications; E78.00 Pure hypercholesterolemia, unspecified; Z79.899 Other long term (current) drug therapy
CPT/HCPCS: 99285; 70450; 71046; 80053; 84443; 84484; 85025; 87502; 87811; 93005

== ENCOUNTER 2024-04-07 06:37 | Emergency (ER) | payer OTHER, SELFPAY ==
[2024-04-07 06:39] VITALS: BP 218/133
[2024-04-07 06:52] LABS: Glucose - Point of Care 103 mg/dl (70-99)
[2024-04-07 07:05] LABS: % Basophils 0.7 % (0-2); % Eosinophils 3.2 % (0-6); % Immature Granulocytes 0.2 % (0-0.5); % Lymphocytes 33.9 % (20.5-51.1); % Monocytes 10.1 % (1.7-9.3); % Neutrophils 51.9 % (42.2-75.2); Absolute Basophils 0.1 10^3/uL (0-0.2); Absolute Eosinophils 0.3 10^3/uL (0-0.7); Absolute Lymphocytes 2.8 10^3/uL (1.2-3.4); Absolute Monocytes 0.8 10^3/uL (0.1-0.6); Absolute Neutrophils 4.3 10^3/uL (1.4-6.5); Hemoglobin 15.7 g/dL (13.0-18.0); Mean Corp Hgb Conc. 32.7 g/dL (33.0-37.0); Mean Corpuscular Volume 88.6 fL (80.0-94.0); Mean Platelet Volume 10.9 fL (7.4-10.4); Nucleated Red Blood Cells % 0 % (-); Platelet Count 170 10^3/uL (130-400); Red Blood Cell Count 5.42 10^6/uL (4.70-6.10); Red Cell Dist. Width 14.2 % (11.5-14.5); White Blood Cell Count 8.3 10^3/uL (4.8-10.8)
--- NOTE | 2024-04-07 07:10 | ED.GENMED ---
History of Present Illness
General
Chief Complaint: Blood Sugar Problem
Source: patient and spouse
Exam Limitations: none
Time Seen by Provider: 04/07/24 06:59
History of Present Illness
History of Present Illness:
48yoM with a history of insulin-dependent type 2 diabetes, hypertension, and hyperlipidemia presenting for evaluation of hypoglycemia. heard his Dexcom beeping this morning around 6 AM due to low blood sugar. His sugar was measuring 69 at
that time. woke him up and gave him 1-1/2 containers of orange juice. The blood sugar did not seem to improve so they came to the ED for evaluation. Patient reports some dizziness and blurry vision immediately upon waking up this morning.
The symptoms have since resolved. The Dexcom is not reading his blood sugar as 120. He is otherwise asymptomatic and denies any fevers, vomiting, headache, chest pain, shortness of breath. Patient takes 80 units of Basaglar in the morning, 20
units of Basaglar in the evening, and 20 units of short acting insulin with meals. He also takes Jardiance. He had a small dinner last night and gave himself both the 20 units of long acting and short acting insulin at 10pm last night.
Past History
Past History
ED Past Medical History: CVA (Presumed right MCA stroke August 2022), HTN, Hypercholesterolemia, IDDM, Psychiatric (Anxiety) and Other (Diverticulosis / diverticulitis)
ED Past Surgical History: None
Social History
Tobacco: Non-smoker
Alcohol: None
Drug: None
Personal: Single
Living: with family
Employment: Employed
Family History
Family History: Diabetes
Phy Exam
General Physical Exam
General Presentation: well appearing and no apparent distress
General age: appears stated age
General Skin: warm and dry
General Habitus: normal
General Mental: alert
ENT Exam
ENT Exam: normocephalic
Cardiovascular Exam
Cardiovascular Exam: regular rate/rhythm and no murmur
Pulmonary Exam
Pulmonary Exam: lungs clear, no respiratory distress, no rales, no crackles and no rhonchi
Neurological Exam
Neurological Exam: alert
Gonsalo Coma Scale
Eye Opening: Spontaneous
Verbal Response: Oriented
Motor Response: Obeys Commands
GCS Total Score: 15
Skin Exam
Skin Exam: normal color and warm/dry
Psychiatric Exam
Psychiatric Exam: normal mood/affect
Course
Orders/Labs/Results
Orders:
Orders
04/07/24 06:52
CMP [Comprehensive Metabolic Panel] Urgent
Complete Blood Count/With Diff Urgent
Abnormal Lab Results
04/07/24 04/07/24
06:50 06:52
MCHC 32.7 L g/dL
(33.0-37.0)
MPV 10.9 H fL
(7.4-10.4)
Absolute Monos (auto) 0.8 H 10^3/uL
(0.1-0.6)
Monocytes % 10.1 H %
(1.7-9.3)
BUN 26 H mg/dl
(9-20)
Glucose 110 H mg/dl
(70-99)
POC Glucose 103 H mg/dl
(70-99)
04/07/24 06:52
04/07/24 06:52
Vital Signs
Initial and Last Documented VS:
Initial Vital Signs
Temp Pulse Resp BP Pulse Ox
98.1 F 92 20 218/133 99
04/07/24 06:39 04/07/24 06:39 04/07/24 06:39 04/07/24 06:39 04/07/24 06:39
Last Documented Vital Signs
Temp Pulse Resp BP Pulse Ox
98.1 F 88 18 130/84 98
04/07/24 06:39 04/07/24 08:15 04/07/24 08:15 04/07/24 08:15 04/07/24 08:15
MDM/Problems Addressed
Differential Diagnosis Includes:
48yoM here with low blood sugar. Dexcom monitor was beeping this morning due to a glucose of 69. woke him up and gave him orange juice. Had some blurry vision/dizziness when his blood sugar was low which has resolved. Fingerstick glucose 103 in
triage. Dexcom reading a glucose of 120 on initial exam. He was hypertensive to 218/133 in triage. Remainder of vitals are normal. Exam reassuring. Differential diagnosis includes but is not limited to: hypoglycemia, dehydration, hypertensive urgency
Initial ED plan: Nursing staff provided peanut butter crackers to patient. Will check CBC, CMP, and monitor blood pressure.
*Critical Care Note
Total Time (30-74mins, 75-104mins- exclusive of procedures): Not Applicable
Update Note
Update Note:
Labs overall unremarkable. Glucose 110 on CMP. Blood pressure improved to 130/84 without intervention. Patient is asymptomatic on reassessment. Dexcom measuring glucose of 146. Patient is stable for discharge. He was advised to follow-up with
his surgery nurse to discuss if any insulin adjustments need to be made. He also has an appointment with his PCP scheduled in 2 days. ED return precautions discussed. Patient expressed understanding and is agreement with plan. He was
discharged in stable condition.
ED Attending Note
-
Portions of this chart may have been created with voice recognition software.� Occasional wrong word or��sound alike� substitutions may have occurred due to the inherent limitations of voice recognition software.
Discharge Plan
Departure
Patient Disposition: Home (Routine Discharge)
Date of Disposition: 04/07/24
Time of Disposition: 08:16
Patient with high blood pressure during this ER visit?: Yes
Discharge Problem:
Hypoglycemic episode in patient with diabetes mellitus
Instructions: Low Blood Sugar, Adult (DC)
Prescriptions:
No Action
atorvastatin 40 MG tablet
40 mg PO HS
metoprolol tartrate 100 mg tablet
100 mg PO BID
insulin aspart U-100 [Novolog FlexPen U-100 Insulin] 100 unit/mL (3 mL) insulin pen
0 sliding scale dose SC MEALS
Patient Comments:
Patient is taking 30-40 units with each meal, patient is targeting a blood sugar of 83 at home
Levemir FlexPen 100 unit/mL (3 mL) insulin pen
60 unit SC BID
valsartan-hydrochlorothiazide 320-12.5 mg tablet
1 tab PO DAILY
Jardiance 10 mg tablet
10 mg PO DAILY
acetaminophen 500 mg Tablet
1,000 mg PO DAILYPRN PRN (Reason: mild pain)
aspirin 81 mg Tablet,Delayed Release (Dr/Ec)
81 mg PO DAILY Qty: 0 0RF
fluticasone propionate [24 Hour Allergy Relief] 50 mcg/actuation spray,suspension
1 spray intranasal DAILY Qty: 16 0RF
pantoprazole [Protonix] 40 mg tablet,delayed release (DR/EC)
40 mg PO DAILY Qty: 30 0RF
Rx Instructions:
Please take 30 minutes prior to eating or drinking anything in the morning.
Referrals:
Shala Drake PA-C [Family Provider] -
Activity Restrictions/Additional Instructions:
Please call your surgery nurse today to discuss if there needs to be any adjustments to your insulin regimen.
Return to the ER with any new or worsening symptoms.
Interventions
Interventions:
*Risk Screen - Suicide Last Done: 04/07/24 06:39
*Neglect/Abuse Screening Last Done: 04/07/24 06:39
ED- Fall Risk Assessment Last Done: 04/07/24 07:03
*Nursing Disposition Last Done: 04/07/24 09:10
ED- Neurological Assessment Last Done: 04/07/24 07:03
Discharge Date and Time
Discharge Date/Time: 04/07/24 09:11
Print Language: WELSH
[2024-04-07 07:18] LABS: ALT (SGPT) 38 U/L (0-50); AST (SGOT) 29 U/L (17-59); Albumin 4.8 g/dl (3.5-5.0); Alkaline Phosphatase 55 U/L (38-126); Blood Urea Nitrogen 26 mg/dl (9-20); Calcium 9.8 mg/dl (8.4-10.2); Carbon Dioxide 25 mmol/L (22-30); Chloride 106 mmol/L (98-107); Glucose 110 mg/dl (70-99); Potassium 3.8 mmol/L (3.5-5.1); Sodium 141 mmol/L (135-145); Total Bilirubin 0.8 mg/dl (0.2-1.3); Total Protein 7.4 g/dl (6.3-8.2); eGFR > 60.00
[2024-04-07 08:15] VITALS: BP 130/84
== END 2024-04-07 09:11 | disposition home or self-care (01) ==
LOC: EMR 06:37
PROVIDERS: EMERGENCY PHYSICIAN Emergency Medicine; FAMILY PHYSICIAN Physician Assistant
DX: E11.649 Type 2 diabetes mellitus with hypoglycemia without coma (principal); I10 Essential (primary) hypertension; E78.00 Pure hypercholesterolemia, unspecified; E78.5 Hyperlipidemia, unspecified
CPT/HCPCS: 99283; 80053; 82962; 85025

== ENCOUNTER 2024-07-23 23:52 | Emergency (ER) | payer OTHER, SELFPAY ==
[2024-07-23 23:57] LABS: Glucose - Point of Care 74 mg/dl (70-99)
[2024-07-23 23:59] VITALS: BP 190/113
[2024-07-24 00:01] VITALS: BP 190/113
[2024-07-24 00:04] VITALS: BMI 35.5
[2024-07-24 00:35] LABS: % Basophils 0.6 % (0-2); % Immature Granulocytes 1.1 % (0-0.5); % Lymphocytes 33.8 % (20.5-51.1); % Monocytes 10.4 % (1.7-9.3); % Neutrophils 52.1 % (42.2-75.2); Absolute Basophils 0.1 10^3/uL (0-0.2); Absolute Eosinophils 0.2 10^3/uL (0-0.7); Absolute Immature Granulocytes 0.1 10^3/uL (0-0.05); Absolute Monocytes 0.9 10^3/uL (0.1-0.6); Absolute Neutrophils 4.6 10^3/uL (1.4-6.5); Hematocrit 43.6 % (39.0-52.0); Mean Corp Hgb Conc. 34.4 g/dL (33.0-37.0); Mean Corpuscular Volume 84.3 fL (80.0-94.0); Mean Platelet Volume 11.6 fL (7.4-10.4); Nucleated Red Blood Cells % 0 % (-); Platelet Count 209 10^3/uL (130-400); Red Blood Cell Count 5.17 10^6/uL (4.70-6.10); Red Cell Dist. Width 13.8 % (11.5-14.5); White Blood Cell Count 8.9 10^3/uL (4.8-10.8)
[2024-07-24 00:38] LABS: ALT (SGPT) 31 U/L (0-50); AST (SGOT) 24 U/L (17-59); Albumin 4.1 g/dl (3.5-5.0); Alkaline Phosphatase 63 U/L (38-126); Blood Urea Nitrogen 29 mg/dl (9-20); Calcium 10.2 mg/dl (8.4-10.2); Carbon Dioxide 27 mmol/L (22-30); Chloride 108 mmol/L (98-107); Estimated Creatinine Clearance 122 ml/min; Glucose 68 mg/dl (70-99); Potassium 3.5 mmol/L (3.5-5.1); Sodium 141 mmol/L (135-145); Total Bilirubin 0.4 mg/dl (0.2-1.3); Total Protein 7.1 g/dl (6.3-8.2); eGFR > 60.00
[2024-07-24 00:50] LABS: Glucose - Point of Care 167 mg/dl (70-99)
[2024-07-24 01:00] VITALS: BP 155/99
[2024-07-24 02:00] VITALS: BP 138/90
[2024-07-24 02:43] LABS: Glucose - Point of Care 206 mg/dl (70-99)
[2024-07-24 03:00] VITALS: BP 158/92
[2024-07-24 04:00] VITALS: BP 151/93
--- NOTE | 2024-07-24 04:17 | ED.GENMED ---
History of Present Illness
General
Chief Complaint: Blood Sugar Problem
Source: patient
Exam Limitations: none
Time Seen by Provider: 07/24/24 03:41
Nursing documentation reviewed up to this point in time: agreed with
History of Present Illness
History of Present Illness:
49-year-old male with a past medical history of hypertension, hyperlipidemia, type 2 diabetes, who presents emergency department today with concerns of a low blood sugar. Patient reports that he had dinner and gave himself his bolus dose of insulin
and his subsequent long-acting dose of insulin when he was alerted by his Dexcom later that his sugar was low. He started to feel a bit dizzy and foggy and reports that he could not think straight. His gave him a lot of orange juice and
symptoms started to improve. Upon arrival to emergency department, nursing staff notified me that patient appeared pale and did not feel well. Currently, he takes 20 units of short acting insulin with meals and takes 80 units of Basaglar in the
morning and 20 units in the evening. He also takes Jardiance. He denies abdominal pain, nausea, vomiting, chest pain, shortness of breath.
Past History
Past History
ED Past Medical History: CVA (Presumed right MCA stroke August 2022), HTN, Hypercholesterolemia, IDDM, Psychiatric (Anxiety) and Other (Diverticulosis / diverticulitis)
ED Past Surgical History: None
Social History
Tobacco: Non-smoker
Alcohol: None
Drug: None
Personal: Single
Living: with family
Employment: Employed
Family History
Family History: Diabetes
Review of Systems
Review of Systems
All Other Systems: ROS reviewed and negative except as documented in HPI and ROS
Phy Exam
Physical Exam
Physical Exam:
General: Patient is well appearing and in no acute distress; non-toxic
Skin: Warm and dry, no rashes or lesions
Head: Normocephalic, atraumatic
Eyes: Sclera non-icteric. EOMs intact.
Cardiac: Regular rate and rhythm, no murmurs
Peripheral Vascular: No lower extremity swelling or edema
Pulm: Normal respiratory effort, no wheezes, rales, or rhonchi
Abdomen: No abdominal tenderness to palpation
Neuro: CN II-XII intact, no focal neurologic deficits.
Psychiatric: Appropriate mood and affect.
Course
Orders/Labs/Results
Orders:
Orders
07/24/24 00:08
CMP [Comprehensive Metabolic Panel] Urgent
Complete Blood Count/With Diff Urgent
07/24/24 04:20
Electrocardiogram (*1) Urgent
Reason for Study: Vertigo / Dizzy
Abnormal Lab Results
07/24/24 07/24/24 07/24/24
00:08 00:47 02:42
MPV 11.6 H fL
(7.4-10.4)
Abs Immat Gran (auto) 0.1 H 10^3/uL
(0-0.05)
Absolute Monos (auto) 0.9 H 10^3/uL
(0.1-0.6)
Immature Gran % 1.1 H %
(0-0.5)
Monocytes % 10.4 H %
(1.7-9.3)
Chloride 108 H mmol/L
(98-107)
BUN 29 H mg/dl
(9-20)
Glucose 68 L mg/dl
(70-99)
POC Glucose 167 H mg/dl 206 H mg/dl
(70-99) (70-99)
07/24/24 00:08
07/24/24 00:08
Vital Signs
Initial and Last Documented VS:
Initial Vital Signs
Temp Pulse Resp BP Pulse Ox
98.3 F 91 20 190/113 98
07/23/24 23:59 07/23/24 23:59 07/23/24 23:59 07/23/24 23:59 07/23/24 23:59
Last Documented Vital Signs
Temp Pulse Resp BP Pulse Ox
98.3 F 78 20 151/93 97
07/23/24 23:59 07/24/24 04:15 07/24/24 01:41 07/24/24 04:00 07/24/24 04:17
MDM/Problems Addressed
Differential Diagnosis Includes:
ddx include dehydration, acute hypoglycemia, electrolyte derangement, medication side effect
MDM/Problems Addressed:
49-year-old male with a past medical history of hypertension, hyperlipidemia, type 2 diabetes, who presents emergency department today with concerns of a low blood sugar. Patient reports that he had off from work and was doing a lot of yard work
today when he went in to have a few hot dogs for dinner and he took his bolus dose and evening dose in close succession. He became light headed and dizzy and his dexcom read 'low'. His dexcom appears to be working appropriately. Pt had OJ and
feels much improved, his sugars have come up. Patient was observed with no additional symptoms. Suspect acute episode from close dosing of bolus and basal insulin as they were given very close together and basal insulin was not given at bedtime as
instructed by his bid analyst. Patient stable for discharge. Discussed calling his bid analyst later today for follow up appointment.
*Pulse Oximetry
SaO2: 97
Oxygen Mode of Delivery: Room air
*Critical Care Note
Total Time (30-74mins, 75-104mins- exclusive of procedures): Not Applicable
ED Attending Note
-
Portions of this chart may have been created with voice recognition software.� Occasional wrong word or��sound alike� substitutions may have occurred due to the inherent limitations of voice recognition software.
Discharge Plan
Departure
Patient Disposition: Home (Routine Discharge)
Date of Disposition: 07/24/24
Time of Disposition: 04:48
Patient with high blood pressure during this ER visit?: Yes
Condition: Good
Discharge Problem:
Hypoglycemia associated with diabetes
Instructions: Low Blood Sugar, Adult (DC), Type 2 Diabetes (DC), BLOOD PRESSURE
Prescriptions:
No Action
atorvastatin 40 MG tablet
40 mg PO HS
metoprolol tartrate 100 mg tablet
100 mg PO BID
insulin aspart U-100 [Novolog FlexPen U-100 Insulin] 100 unit/mL (3 mL) insulin pen
0 sliding scale dose SC MEALS
Patient Comments:
Patient is taking 30-40 units with each meal, patient is targeting a blood sugar of 83 at home
Levemir FlexPen 100 unit/mL (3 mL) insulin pen
60 unit SC BID
valsartan-hydrochlorothiazide 320-12.5 mg tablet
1 tab PO DAILY
Jardiance 10 mg tablet
10 mg PO DAILY
acetaminophen 500 mg Tablet
1,000 mg PO DAILYPRN PRN (Reason: mild pain)
aspirin 81 mg Tablet,Delayed Release (Dr/Ec)
81 mg PO DAILY Qty: 0 0RF
fluticasone propionate [24 Hour Allergy Relief] 50 mcg/actuation spray,suspension
1 spray intranasal DAILY Qty: 16 0RF
pantoprazole [Protonix] 40 mg tablet,delayed release (DR/EC)
40 mg PO DAILY Qty: 30 0RF
Rx Instructions:
Please take 30 minutes prior to eating or drinking anything in the morning.
Referrals:
Shala Drake PA-C [Family Provider, Internal Medicine]
Activity Restrictions/Additional Instructions:
Please call your bid analyst today to schedule a follow up appointment. Please call and let them know you were seen in the emergency department.
PLEASE CALL YOUR PRIMARY CARE PROVIDER SHOULD YOU DEVELOP CHEST PAIN, SHORTNESS OF BREATH, DIZZINESS, LIGHTHEADEDNESS, TREMORS, FAINTING SPELLS, LOSS OF VISION, OR ANY OTHER SIGNS OR SYMPTOMS WORRISOME TO YOU.
Interventions
Interventions:
*Risk Screen - Suicide Last Done: 07/23/24 23:59
*General Assessment Last Done: 07/23/24 23:59
*Neglect/Abuse Screening Last Done: 07/23/24 23:59
*ED- Fall Risk Assessment Last Done: 07/24/24 05:05
*ED COVID-19 Vaccine History Last Done: 07/23/24 23:59
*Nursing Disposition Last Done: 07/24/24 05:05
ED- Neurological Assessment Last Done: 07/24/24 02:36
Discharge Date and Time
Discharge Date/Time: 07/24/24 05:07
Print Language: SLOVENIAN
== END 2024-07-24 05:07 | disposition home or self-care (01) ==
LOC: EMR 23:52
PROVIDERS: EMERGENCY PHYSICIAN Emergency Medicine; FAMILY PHYSICIAN Physician Assistant
DX: E11.649 Type 2 diabetes mellitus with hypoglycemia without coma (principal); I10 Essential (primary) hypertension; E78.00 Pure hypercholesterolemia, unspecified; Z83.3 Family history of diabetes mellitus; Z86.73 Personal history of transient ischemic attack (TIA), and cerebral infarction without residual deficits
CPT/HCPCS: 99283; 80053; 82962; 85025; 93005

== ENCOUNTER 2024-09-19 03:17 | Emergency (ER) | payer OTHER, SELFPAY ==
[2024-09-19 03:23] VITALS: BP 204/119
[2024-09-19 03:23] LABS: Glucose - Point of Care 59 mg/dl (70-99)
[2024-09-19 03:57] VITALS: BP 163/97; BMI 36.1
[2024-09-19 04:09] LABS: Glucose - Point of Care 144 mg/dl (70-99)
--- NOTE | 2024-09-19 05:38 | ED.GENMED ---
History of Present Illness
General
Chief Complaint: Blood Sugar Problem
Source: patient and spouse
Exam Limitations: none
Time Seen by Provider: 09/19/24 05:00
Nursing documentation reviewed up to this point in time: agreed with
History of Present Illness
History of Present Illness:
Note:
CHIEF COMPLAINT(S)
Hypoglycemia.
HISTORY OF PRESENT ILLNESS
The patient is a 49-year-old male with a history of diabetes mellitus, presenting with hypoglycemia. The patient reported that his blood sugar 'kept going down and down,' which he attributed to a potentially excessive dose of regular insulin for the
meal he had. For dinner, the patient consumed shrimp with a ham sandwich. He took 20 units of insulin, which he believes may have been too high for the meal size. The patients trimmer and reinforcer, who is a nurse practitioner, manages his insulin
prescriptions. The patient checks his blood sugar regularly and noted it was around 175 mg/dL at approximately 8:00 PM before dinner. The patient did not recall the exact time he had dinner. He expressed concern about the potential of lower blood
sugar levels, but it was noted to be 153 mg/dL upon subsequent check and appears to be stabilizing. The patient denied any recent illness or pain.
SOCIAL DETERMINANTS AFFECTING HEALTH
The patient mentioned his is encouraging him to eat healthier.
PHYSICAL EXAM
General: Alert, no acute distress.
Skin: Warm, dry.
Head: Normocephalic, atraumatic.
Neck: Supple, trachea midline.
Eyes, Ears, Nose, Mouth, and Throat: Oral mucosa moist.
Cardiovascular: Normal peripheral perfusion, no edema.
Respiratory: Respirations are non-labored.
Gastrointestinal: Abdomen nondistended.
Back: Normal range of motion, normal alignment.
Musculoskeletal: Normal range of motion, normal strength.
Neurological: Alert and oriented to person, place, time, and situation, no focal neurological deficit observed.
Psychiatric: Cooperative, appropriate mood and affect.
PROBLEM LIST
Acute: Hypoglycemia secondary to possible excessive insulin dosing.
Chronic: Diabetes Mellitus.
PLAN
The patient will be monitored for an additional 30 minutes to ensure blood sugar levels do not decrease again. If blood sugar stabilizes, the patient can be discharged home. If not, further interventions may be needed. The patient is advised to
inform the medical team if he desires to eat anything during the observation period.
DIFFERENTIAL DIAGNOSIS
The Differential Diagnosis includes, in no particular order and is not limited to:
1. Excessive insulin dosage
2. Missed or inadequate carbohydrate intake
3. Unplanned physical activity
4. Renal insufficiency affecting insulin clearance
5. Adrenal insufficiency
6. Hepatic dysfunction
7. Insulinoma
8. Critical illness hypoglycemia
9. Sepsis
10. Medication interactions affecting insulin sensitivity or glucose metabolism.
Disposition:
SUMMARY OF ENCOUNTER
The patient is a 49-year-old male who presented to the emergency department with hypoglycemia. He recently began a low-carbohydrate diet as advised by his , but did not adjust his insulin regimen accordingly. The patient consumed shrimp cocktail
and a small sandwich, followed by administering 20 units of insulin. This resulted in a drop in blood sugar levels. Upon arrival at the emergency department, the patient was given orange juice, which helped raise his blood sugar to 144 mg/dL
initially, and after observation, it was stable at 150 mg/dL.
DISPOSITION
Patient to be discharged home.
ASSESSMENT
Hypoglycemia secondary to excessive insulin dosing in the context of dietary changes.
EMERGENCY TREATMENTS ADMINISTERED
Arthur juice administered to raise blood sugar levels.
PLAN
The patient will be discharged home. He is advised to follow up with his trimmer and reinforcer to reassess and adjust his insulin regimen, taking into consideration his dietary changes.
PATIENT EDUCATION AND COUNSELING
The patient was educated on adjusting insulin dosage in response to dietary intake. He was advised on proper insulin usage, especially when following a low-carbohydrate diet.
FOLLOW-UP INSTRUCTIONS
Patient is to follow up with his trimmer and reinforcer.
MEDICATION RECONCILIATION
The patient received orange juice to raise their blood sugar levels in the emergency department.
MEDICAL DECISION MAKING
- Number and Complexity of Problems Addressed: Chronic conditions affecting care, including diabetes mellitus and hypoglycemia secondary to possible excessive insulin dosing.
- Data:
- Category 1: The blood glucose levels were independently checked and reviewed.
- Category 2: N/A
- Category 3: Discussion of management with the patient regarding insulin usage and dietary changes.
- Risk: Consideration of Admission/Observation: Escalation of care including admission/observation was considered given the complexity and risk of the patients presenting complaint, exam findings, and underlying comorbidities. However, ultimately
the patient is deemed safe for outpatient management with close follow-up. Reasoning: Work-up reassuring, symptoms well-controlled upon reevaluation, stable vitals, patient is agreeable with discharge and reliable for follow-up.
DIAGNOSIS
- Hypoglycemia, ICD-10: E16.2
- Diabetes Mellitus, ICD-10: E11.9
Past History
Past History
ED Past Medical History: CVA (Presumed right MCA stroke August 2022), HTN, Hypercholesterolemia, IDDM, Psychiatric (Anxiety) and Other (Diverticulosis / diverticulitis)
ED Past Surgical History: None
Social History
Tobacco: Non-smoker
Alcohol: None
Drug: None
Personal: Single
Living: with family
Employment: Employed
Family History
Family History: Diabetes
Review of Systems
Review of Systems
Allergies reviewed?: Yes
All Other Systems: ROS reviewed and negative except as documented in HPI and ROS
Constitutional: Reports no symptoms
EENT: Reports no symptoms
Respiratory: Reports no symptoms
Cardiac: Reports no symptoms
ABD/GI: Reports no symptoms
: Reports no symptoms
Musculoskeletal: Reports no symptoms
Skin: Reports no symptoms
Neurological: Reports no symptoms
Endocrine: Reports no symptoms
Hematologic/Lymphatic: Reports no symptoms
Psychiatric: Reports anxiety
Phy Exam
General Physical Exam
General Presentation: well appearing and no apparent distress
General Skin: warm and dry
General Habitus: normal
General Mental: alert
General Hydration: appears well hydrated
ENT Exam
ENT Exam: EOMI, pharynx normal, neck supple and normocephalic
Eye Exam
Eye Exam: PERRL, cornea clear and conjunctiva normal
Cardiovascular Exam
Cardiovascular Exam: regular rate/rhythm, no edema, no murmur and normal peripheral pulses
Pulmonary Exam
Pulmonary Exam: lungs clear, no respiratory distress, no rales, no crackles, no rhonchi, no stridor, no wheezing and no cough
Gastrointestinal Exam
Gastrointestinal Exam: normal bowel sounds, non tender, soft, no organomegaly, no pulsatile mass and non distended
Neurological Exam
Neurological Exam: alert, oriented x3, no motor deficits and speech normal
Musculoskeletal Exam
Musculoskeletal Exam: full ROM and no edema
Skin Exam
Skin Exam: normal color, warm/dry, no rash and no petechia
Psychiatric Exam
Psychiatric Exam: normal mood/affect
Course
Orders/Labs/Results
Orders:
Abnormal Lab Results
09/19/24 09/19/24
03:20 04:07
POC Glucose 59 L mg/dl 144 H mg/dl
(70-99) (70-99)
Vital Signs
Initial and Last Documented VS:
Initial Vital Signs
Pulse Resp BP Pulse Ox
91 18 204/119 98
09/19/24 03:23 09/19/24 03:23 09/19/24 03:23 09/19/24 03:23
Last Documented Vital Signs
Pulse Resp BP Pulse Ox
91 18 163/97 97
09/19/24 03:23 09/19/24 03:23 09/19/24 03:57 09/19/24 05:00
*Pulse Oximetry
SaO2: 97
Oxygen Mode of Delivery: Room air
Patient hypoxic: no
*Critical Care Note
Total Time (30-74mins, 75-104mins- exclusive of procedures): Not Applicable
ED Attending Note
-
Portions of this chart may have been created with voice recognition software.� Occasional wrong word or��sound alike� substitutions may have occurred due to the inherent limitations of voice recognition software.
Discharge Plan
Departure
Patient Disposition: Home (Routine Discharge)
Date of Disposition: 09/19/24
Time of Disposition: 05:41
Patient with high blood pressure during this ER visit?: Yes
Discharge Problem:
Hypoglycemia
Instructions: Low Blood Sugar, Adult (DC), Diabetes Type 1, Adult (DC)
Prescriptions:
No Action
atorvastatin 40 MG tablet
40 mg PO HS
metoprolol tartrate 100 mg tablet
100 mg PO BID
insulin aspart U-100 [Novolog FlexPen U-100 Insulin] 100 unit/mL (3 mL) insulin pen
0 sliding scale dose SC MEALS
Patient Comments:
Patient is taking 30-40 units with each meal, patient is targeting a blood sugar of 83 at home
Levemir FlexPen 100 unit/mL (3 mL) insulin pen
60 unit SC BID
valsartan-hydrochlorothiazide 320-12.5 mg tablet
1 tab PO DAILY
Jardiance 10 mg tablet
10 mg PO DAILY
acetaminophen 500 mg Tablet
1,000 mg PO DAILYPRN PRN (Reason: mild pain)
aspirin 81 mg Tablet,Delayed Release (Dr/Ec)
81 mg PO DAILY Qty: 0 0RF
fluticasone propionate [24 Hour Allergy Relief] 50 mcg/actuation spray,suspension
1 spray intranasal DAILY Qty: 16 0RF
pantoprazole [Protonix] 40 mg tablet,delayed release (DR/EC)
40 mg PO DAILY Qty: 30 0RF
Rx Instructions:
Please take 30 minutes prior to eating or drinking anything in the morning.
Referrals:
[facility] [Outside]
UNKNOWN - PT DOES,NOT KNOW [Family Provider]
Activity Restrictions/Additional Instructions:
Please follow-up with your trimmer and reinforcer to possibly adjust the insulin based on your new diet.
Please make sure to check your logan before dosing insulin.
Thank You for choosing [facility].
It was a pleasure meeting you and taking part in your care. We hope for your continued healing and wellness.
Please read discharge instructions in their entirety. However, they are for general education and may not describe your exact diagnosis at discharge. Information on your ER visit and medical conditions were discussed with you along with appropriate
follow up information...
If indicated, please take your medications as instructed and indicated on discharge paperwork.
Please schedule a follow up appointment as directed. Call to schedule an appointment
Please return to the emergency department with ANY change in, persisting, or worsening of symptoms. If any of your symptoms do not improve, or persist, or become more severe within 6-12 hours, please return to the emergency department for further
care.
Please return to the emergency department if you develop a headache, neck pain/stiffness, fever greater than 100.4F, chest pain, shortness of breath, persistent nausea, vomiting, slurred speech, difficulty walking, numbness/tingling, weakness, signs
of infection or any other symptoms that are worrisome to you.
If you have any questions or concerns please do not hesitate to call the Hospital at or E-mail me directly at [email or web address]
Interventions
Interventions:
*Risk Screen - Suicide Last Done: 09/19/24 03:23
*General Assessment Last Done: 09/19/24 03:23
*Neglect/Abuse Screening Last Done: 09/19/24 03:57
*ED- Fall Risk Assessment Last Done: 09/19/24 03:23
*ED COVID-19 Vaccine History Last Done: 09/19/24 03:23
ED- Neurological Assessment Last Done: 09/19/24 03:57
Discharge Date and Time
Print Language: SWEDISH
[2024-09-19 05:39] LABS: Glucose - Point of Care 150 mg/dl (70-99)
== END 2024-09-19 06:00 | disposition home or self-care (01) ==
LOC: EMR 03:17
PROVIDERS: EMERGENCY PHYSICIAN Student in an Organized Health Care Education/Training Program
DX: E11.649 Type 2 diabetes mellitus with hypoglycemia without coma (principal); E78.00 Pure hypercholesterolemia, unspecified; I10 Essential (primary) hypertension; Z71.3 Dietary counseling and surveillance; Z83.3 Family history of diabetes mellitus; Z86.73 Personal history of transient ischemic attack (TIA), and cerebral infarction without residual deficits
CPT/HCPCS: 99282; 82962

== ENCOUNTER 2024-10-14 00:14 | Emergency (ER) | payer OTHER, SELFPAY ==
[2024-10-14] VITALS (16 sets, daily range): BP systolic 164–230; BP diastolic 96–126; BMI 35.1
--- NOTE | 2024-10-14 00:30 | ED.GENMED ---
History of Present Illness
<Pee Felipe PA-C - Last Filed: 10/14/24 00:38>
General
Chief Complaint: Blood Sugar Problem
Source: patient, records and spouse
Time Seen by Provider: 10/14/24 00:30
History of Present Illness
History of Present Illness:
49-year-old male with past medical history of previous stroke, hypertension, hyperlipidemia, insulin-dependent diabetes presenting to the emergency department for evaluation after he was awoken by his continuous glucose monitor which read his
glucose was around 60, at that time patient seemed confused, was complaining of chest pain and feeling unwell. He reports that he last ate breakfast and took his insulin at that time, returned home from work around 10 PM this evening and reports he
was just tired and wanted to go to sleep, never ate dinner or took any of his other medications. At time of my exam patient is also complaining of feeling lightheaded and somewhat nauseous. He was noted on arrival back into the room to be holding
the left side of his chest complaining of the chest pain. Based off of history it was noted that patient is often noncompliant with his medication regimens.
<Yani Clay PA-C - Last Filed: 10/14/24 07:33>
General
Exam Limitations: none
Nursing documentation reviewed up to this point in time: agreed with
Past History
<Pee Felipe PA-C - Last Filed: 10/14/24 00:38>
Past History
ED Past Medical History: CVA (Presumed right MCA stroke August 2022), HTN, Hypercholesterolemia, IDDM, Psychiatric (Anxiety) and Other (Diverticulosis / diverticulitis)
ED Past Surgical History: None
Social History
Tobacco: Non-smoker
Alcohol: None
Drug: None
Personal:
Living: with family
Employment: Employed
Family History
Family History: Diabetes
Review of Systems
<Pee Felipe PA-C - Last Filed: 10/14/24 00:38>
Review of Systems
All Other Systems: ROS reviewed and negative except as documented in HPI and ROS
Phy Exam
<Pee Felipe PA-C - Last Filed: 10/14/24 00:38>
Physical Exam
Physical Exam:
GENERAL: Sleepy but arousable to voice, pale, clammy and appears unwell
HEAD: Normocephalic atraumatic
EYE: Clear conjunctiva
NECK: Supple
ENT: o/p clr, mmm.
CARDIAC: Borderline tachycardic rate, normal rhythm
LUNGS: Clear breath sounds bilaterally, no acute respiratory distress, no wheezes/rales/rhonchi
ABDOMEN: Soft, without focal tenderness, no r/g, no cvat
NEUROLOGICAL: Alert and oriented
SKIN: Warm and dry, skin intact.
MUSCULOSKELETAL: No edema, well perfused.
PSYCH: Normal and appropriate interaction.
Scores
<Pee Felipe PA-C - Last Filed: 10/14/24 00:38>
Heart Failure Risk
Heart Failure Risk Score: Not Applicable
Heart Score for Chest Pain Patients
STEMI patient?: Not applicable
Withdrawal Assessment of Alcohol
Withdrawal Assessment Completed?: Not applicable
Course
<Pee Felipe PA-C - Last Filed: 10/14/24 00:38>
Orders/Labs/Results
Orders:
Orders
10/14/24
Electrocardiogram (*1) Stat
Comment: DONE EMR
10/14/24 00:18
EKG with chest pain [ECG as needed] As Directed
ECG as needed for:: Chest Pain
10/14/24 00:20
Dextrose 50%-Water [Dextrose 50% Syringe] 25 grams .ROUTE .K-MED ONE
10/14/24 00:28
Complete Blood Count/With Diff Urgent
Comprehensive Metabolic Panel Urgent
Troponin I Urgent
10/14/24 00:30
CR Chest Portable - 1 View Urgent
Comment:
Reason For Exam: chest pain, HTN
Reason Study Needs to be Portable: Patient Unstable
10/14/24 03:22
Troponin I Urgent
10/14/24 03:25
Electrocardiogram (*1) Urgent
Reason for Study: Chest Pain
10/14/24 03:56
Labetalol HCl [Trandate] 10 mg IV NOW STA
10/14/24 03:58
Acetaminophen [Tylenol] 650 mg .ROUTE .STK-MED ONE
Abnormal Lab Results
10/14/24 10/14/24 10/14/24
00: 00:47 03:24
MPV 12.1 H fL
(7.4-10.4)
Absolute Monos (auto) 0.8 H 10^3/uL
(0.1-0.6)
Chloride 109 H mmol/L
(98-107)
BUN 26 H mg/dl
(9-20)
POC Glucose 180 H mg/dl 129 H mg/dl
(70-99) (70-99)
10/14/24
05:16
MPV
Absolute Monos (auto)
Chloride
BUN
POC Glucose 116 H mg/dl
(70-99)
10/14/24 00:28
10/14/24 00:28
Vital Signs
Initial and Last Documented VS:
Initial Vital Signs
Pulse Resp BP Pulse Ox
96 20 220/126 100
10/14/24 00:22 10/14/24 00:22 10/14/24 00:22 10/14/24 00:22
Last Documented Vital Signs
Pulse Resp BP Pulse Ox
84 16 183/105 99
10/14/24 04:22 10/14/24 04:22 10/14/24 04:56 10/14/24 04:59
Karenlt;Danilo Perdomo, DO - Last Filed: 10/14/24 00:59>
Orders/Labs/Results
Orders:
Orders
10/14/24
Electrocardiogram (*1) Stat
Comment: DONE EMR
10/14/24 00:18
EKG with chest pain [ECG as needed] As Directed
ECG as needed for:: Chest Pain
10/14/24 00:20
Dextrose 50%-Water [Dextrose 50% Syringe] 25 grams .ROUTE .STK-MED ONE
10/14/24 00:28
Complete Blood Count/With Diff Urgent
Comprehensive Metabolic Panel Urgent
Troponin I Urgent
10/14/24 00:30
CR Chest Portable - 1 View Urgent
Comment:
Reason For Exam: chest pain, HTN
Reason Study Needs to be Portable: Patient Unstable
10/14/24 03:22
Troponin I Urgent
10/14/24 03:25
Electrocardiogram (*1) Urgent
Reason for Study: Chest Pain
10/14/24 03:56
Labetalol HCl [Trandate] 10 mg IV NOW STA
10/14/24 03:58
Acetaminophen [Tylenol] 650 mg .ROUTE .STK-MED ONE
Abnormal Lab Results
10/14/24 10/14/24 10/14/24
00:28 00:47 03:24
MPV 12.1 H fL
(7.4-10.4)
Absolute Monos (auto) 0.8 H 10^3/uL
(0.1-0.6)
Chloride 109 H mmol/L
(98-107)
BUN 26 H mg/dl
(9-20)
POC Glucose 180 H mg/dl 129 H mg/dl
(70-99) (70-99)
10/14/24
05:16
MPV
Absolute Monos (auto)
Chloride
BUN
POC Glucose 116 H mg/dl
(70-99)
10/14/24 00:28
10/14/24 00:28
Vital Signs
Initial and Last Documented VS:
Initial Vital Signs
Pulse Resp BP Pulse Ox
96 20 220/126 100
10/14/24 00:22 10/14/24 00:22 10/14/24 00:22 10/14/24 00:22
Last Documented Vital Signs
Pulse Resp BP Pulse Ox
84 16 183/105 99
10/14/24 04:22 10/14/24 04:22 10/14/24 04:56 10/14/24 04:59
<Yani Clay PA-C - Last Filed: 10/14/24 07:33>
Orders/Labs/Results
Orders:
Orders
10/14/24
Electrocardiogram (*1) Stat
Comment: DONE EMR
10/14/24 00:18
EKG with chest pain [ECG as needed] As Directed
ECG as needed for:: Chest Pain
10/14/24 00:20
Dextrose 50%-Water [Dextrose 50% Syringe] 25 grams .ROUTE .STK-MED ONE
10/14/24 00:28
Complete Blood Count/With Diff Urgent
Comprehensive Metabolic Panel Urgent
Troponin I Urgent
10/14/24 00:30
CR Chest Portable - 1 View Urgent
Comment:
Reason For Exam: chest pain, HTN
Reason Study Needs to be Portable: Patient Unstable
10/14/24 03:22
Troponin I Urgent
10/14/24 03:25
Electrocardiogram (*1) Urgent
Reason for Study: Chest Pain
10/14/24 03:56
Labetalol HCl [Trandate] 10 mg IV NOW STA
10/14/24 03:58
Acetaminophen [Tylenol] 650 mg .ROUTE .STK-MED ONE
Abnormal Lab Results
10/14/24 10/14/24 10/14/24
00:28 00:47 03:24
MPV 12.1 H fL
(7.4-10.4)
Absolute Monos (auto) 0.8 H 10^3/uL
(0.1-0.6)
Chloride 109 H mmol/L
(98-107)
BUN 26 H mg/dl
(9-20)
POC Glucose 180 H mg/dl 129 H mg/dl
(70-99) (70-99)
10/14/24
05:16
MPV
Absolute Monos (auto)
Chloride
BUN
POC Glucose 116 H mg/dl
(70-99)
10/14/24 00:28
10/14/24 00:28
Vital Signs
Initial and Last Documented VS:
Initial Vital Signs
Pulse Resp BP Pulse Ox
96 20 220/126 100
10/14/24 00:22 10/14/24 00:22 10/14/24 00:22 10/14/24 00:22
Last Documented Vital Signs
Pulse Resp BP Pulse Ox
84 16 183/105 99
10/14/24 04:22 10/14/24 04:22 10/14/24 04:56 10/14/24 04:59
<Pee Felipe PA-C - Last Filed: 10/14/24 00:38>
MDM/Problems Addressed
Differential Diagnosis Includes:
Hypoglycemia 2/2 Insulin use
Dehydration
Hypertensive Urgency
ACS
CVA
Electrolyte imbalance
Less concern for infectious etiology
Medication non-compliance
MDM/Problems Addressed:
49-year-old male presenting to the ER after being awoken by his continuous glucose monitor that he was hypoglycemic. Patient states he had not eaten anything since breakfast, took insulin at that time but none since then. Missed his evening dose
of medications. Arrives to the ER with a multitude of symptoms, profoundly hypertensive, appears unwell and pale. EKG done on arrival does show inferior T wave inversions which is new from previous EKG. Will perform cardiac workup here. No
neurologic symptoms. 12.5 mg of glucose given IV due to the mild hypoglycemia. Disposition pending.
Chronic conditions affecting care: HTN
Acute Exacerbation and/or Progression of Chronic Illness: HTN
<Pee Felipe PA-C - Last Filed: 10/14/24 00:38>
*Pulse Oximetry
SaO2: 100
Oxygen Mode of Delivery: Room air
Patient hypoxic: no
*EKG
Interpreted by ED Provider?: Yes
Heart Rate: 100
Rate: tachycardiac
Rhythm: sinus
Ischemia: T-wave inversion (Inferior leads)
*Medicine Assistant Interpretation
Rate: normal
Heart Rate: 98
Rhythm: sinus
Data Reviewed
Review of Other/Old Records Reveals: Labs and Records
<Yani Clay PA-C - Last Filed: 10/14/24 07:33>
*Critical Care Note
Total Time (30-74mins, 75-104mins- exclusive of procedures): Not Applicable
<Yani Clay PA-C - Last Filed: 10/14/24 07:33>
Update Note
Update Note:
Update, I received patient in sign out. Awaiting repeat Trop. I was notified by nursing staff that patient's blood pressure elevated again. I went to see patient, patient had anxious affect, was concerned about ring stuck on ring finger. Patient
has increased anxiety. Patient denies headache or chest pain at this time. He reports intense finger pain. Finger swelling noted on exam with stuck ring. I applied ice to the area as well as lubricant and used string method to remove ring.
Repeat troponin undetectable. No signs of end organ damage. Patient has no active chest pain or headache. Did give dose of labetalol. Did reviewed patient's chart, patient has a long history of uncontrolled high blood pressure. Discussed strict
adherence to his medication and to set reminders on his phone to take it. Patient will follow-up with cardiology and PCP. Patient stable for discharge.
ED Attending Note
<Pee Felipe PA-C - Last Filed: 10/14/24 00:38>
-
Portions of this chart may have been created with voice recognition software.� Occasional wrong word or��sound alike� substitutions may have occurred due to the inherent limitations of voice recognition software.
<Danilo Perdomo DO - Last Filed: 10/14/24 00:59>
ED Attending Note
Patient seen and examined by attending physician: Yes
I performed the substantive portion of visit, reviewed & personally made and approve the management plan that is documented in note by myself or ISAÍAS.: Yes
ED Attending Note:
I agree with Alf's note
Patient presents complaining of feeling somewhat confused, having chest pain. Patient also concerned his glucose is lower than typical at 62. Patient had recently 12.5 g of dextrose shortly after arrival. He is feeling better at the time of my
evaluation. Symptoms are almost completely resolved.
General: Awake, Alert, Oriented X3. No acute distress.
Vitals: unremarkable
Head: Atraumatic
Eyes: Pupils equal, EOMI
Throat: Airway intact, no exudates
Neck: Trachea midline
Lungs: Clear and equal b/l
Heart: Regular rate, no murmurs
Abd: Soft, Nontender, No pulsatile mass
Neuro: Nonfocal
Skin: Warm, dry, no rash
Extremities: pulses equal b/l, no edema
EKG: Normal sinus rhythm, nonspecific ST changes
Symptoms appear to be primarily related to hypoglycemia. Obtain troponin x 2. If those are normal patient can be discharged for outpatient.
Discharge Plan
Departure
Patient Disposition: Home (Routine Discharge)
Date of Disposition: 10/14/24
Time of Disposition: 05:09
Patient with high blood pressure during this ER visit?: Yes
Condition: Good
Discharge Problem:
Hypoglycemia, Essential hypertension, Chest pain
Instructions: Low Blood Sugar, Adult (DC), Chest Pain CBC Follow Up, BLOOD PRESSURE
Prescriptions:
No Action
atorvastatin 40 MG tablet
40 mg PO HS
metoprolol tartrate 100 mg tablet
100 mg PO BID
insulin aspart U-100 [Novolog FlexPen U-100 Insulin] 100 unit/mL (3 mL) insulin pen
0 sliding scale dose SC MEALS
Patient Comments:
Patient is taking 30-40 units with each meal, patient is targeting a blood sugar of 83 at home
Levemir FlexPen 100 unit/mL (3 mL) insulin pen
60 unit SC BID
valsartan-hydrochlorothiazide 320-12.5 mg tablet
1 tab PO DAILY
Jardiance 10 mg tablet
10 mg PO DAILY
acetaminophen 500 mg Tablet
1,000 mg PO DAILYPRN PRN (Reason: mild pain)
aspirin 81 mg Tablet,Delayed Release (Dr/Ec)
81 mg PO DAILY Qty: 0 0RF
fluticasone propionate [24 Hour Allergy Relief] 50 mcg/actuation spray,suspension
1 spray intranasal DAILY Qty: 16 0RF
pantoprazole [Protonix] 40 mg tablet,delayed release (DR/EC)
40 mg PO DAILY Qty: 30 0RF
Rx Instructions:
Please take 30 minutes prior to eating or drinking anything in the morning.
Referrals:
Shala Drake PA-C [Family Provider, Internal Medicine]
Activity Restrictions/Additional Instructions:
Please continue to monitor your blood pressure. Please check your blood pressure once daily in the morning. Please keep a log of your blood pressures at home. Please see your project associate and primary care provider in follow-up.
PLEASE RETURN TO ER SHOULD YOU DEVELOP HEADACHE, NAUSEA OR VOMITING, CHEST PAIN, SHORTNESS OF BREATH, LIGHTHEADEDNESS, DIZZINESS, LOSS CONSCIOUSNESS, OR ANY OTHER SIGNS OR SYMPTOMS RECENTLY.
Interventions
Interventions:
*Risk Screen - Suicide Last Done: 10/14/24 05:15
*General Assessment Last Done: 10/14/24 00:53
*Neglect/Abuse Screening Last Done: 10/14/24 05:15
*ED- Fall Risk Assessment Last Done: 10/14/24 00:53
*ED COVID-19 Vaccine History Last Done: 10/14/24 00:53
*Nursing Disposition Last Done: 10/14/24 05:15
ED- Cardiac Assessment Last Done: 10/14/24 00:53
ED- Neurological Assessment Last Done: 10/14/24 00:53
Discharge Date and Time
Discharge Date/Time: 10/14/24 05:15
Print Language: VENEZUELAN
[2024-10-14 00:49] LABS: Glucose - Point of Care 180 mg/dl (70-99)
[2024-10-14 01:13] LABS: Troponin I < 0.012 ng/ml
[2024-10-14 01:15] LABS: ALT (SGPT) 27 U/L (0-50); AST (SGOT) 25 U/L (17-59); Albumin 4.3 g/dl (3.5-5.0); Alkaline Phosphatase 58 U/L (38-126); Blood Urea Nitrogen 26 mg/dl (9-20); Calcium 9.7 mg/dl (8.4-10.2); Carbon Dioxide 26 mmol/L (22-30); Chloride 109 mmol/L (98-107); Estimated Creatinine Clearance > 125 ml/min; Glucose 87 mg/dl (70-99); Potassium 3.7 mmol/L (3.5-5.1); Sodium 142 mmol/L (135-145); Total Protein 7.4 g/dl (6.3-8.2); eGFR > 60.00
[2024-10-14 01:41] LABS: Hematocrit 45.3 % (39.0-52.0); Hemoglobin 15.7 g/dL (13.0-18.0); Mean Corp Hgb Conc. 34.7 g/dL (33.0-37.0); Mean Corpuscular Volume 88.5 fL (80.0-94.0); Nucleated Red Blood Cells % 0 % (-); Platelet Count 215 10^3/uL (130-400); Red Cell Dist. Width 13.9 % (11.5-14.5)
[2024-10-14 03:35] LABS: Glucose - Point of Care 129 mg/dl (70-99)
[2024-10-14] MEDS: TRANDATE 10 MG IV (04:01)
[2024-10-14 04:10] LABS: Troponin I < 0.012 ng/ml
[2024-10-14 05:21] LABS: Glucose - Point of Care 116 mg/dl (70-99)
== END 2024-10-14 05:15 | disposition home or self-care (01) ==
LOC: EMR 00:14
PROVIDERS: Physician Assistant; Physician Assistant Medical; EMERGENCY PHYSICIAN Emergency Medicine; FAMILY PHYSICIAN Physician Assistant
DX: E11.649 Type 2 diabetes mellitus with hypoglycemia without coma (principal); I10 Essential (primary) hypertension; R07.9 Chest pain, unspecified; E78.00 Pure hypercholesterolemia, unspecified; Z86.73 Personal history of transient ischemic attack (TIA), and cerebral infarction without residual deficits
CPT/HCPCS: 96374; 99285; 71045; 80053; 82962; 84484; 85025; 93005

== ENCOUNTER 2024-12-15 01:59 | Observation (INO) | payer OTHER, SELFPAY ==
[2024-12-14] VITALS (11 sets, daily range): BP systolic 130–247; BP diastolic 65–152; BMI 45.3
[2024-12-14 21:39] LABS: Glucose - Point of Care 485 mg/dl (70-99)
--- NOTE | 2024-12-14 21:55 | ED.GENMED ---
History of Present Illness
General
Chief Complaint: Chest Pain
Source: patient and spouse
Exam Limitations: none
Time Seen by Provider: 12/14/24 21:45
Nursing documentation reviewed up to this point in time: agreed with
History of Present Illness
History of Present Illness:
Note:
CHIEF COMPLAINT(S)
Dizziness, facial burning sensation, chest pain since 3:00 PM, with exacerbation in severity.
HISTORY OF PRESENT ILLNESS
The patient is a 49-year-old male with a history of diabetes and hypertension who presented with a chief complaint of dizziness and facial burning sensation. The patient reported the onset of chest pain at approximately 3:00 PM, and it is now nearly
10:00 PM. The severity of the chest pain has intensified, prompting the visit to the emergency department. The patient described a history of poorly controlled blood sugar levels, suggesting he has felt generally unwell for weeks, potentially
related to both high blood glucose and high blood pressure levels. The patient was admitted to [facility] earlier this week for similar symptoms, including hypertension, but does not recall the specific reasons for his admission and
attributes being taken to the hospital by his spouse.
The patient is under the care of an internal medicine provider, whom he references as managing his current medications, although he denies having a regular family doctor. The patient is taking medications including insulin, which he confirms
administering today, as well as metoprolol for high blood pressure, though he is uncertain about the complete medication regimen. The patient denies missing any doses of his medication.
PAST MEDICAL AND SURGICAL HISTORY
The patient has a history of diabetes and hypertension.
CHRONIC MEDICAL CONDITIONS SIGNIFICANTLY AFFECTING CARE
1. Diabetes
2. Hypertension
MEDICATIONS
1. Insulin
2. Metoprolol
3. Jardiance- discontinued
REVIEW OF SYSTEMS
- Cardiovascular: Chest pain since 3:00 PM, exacerbation in severity.
- Neurological: Dizziness and headache, which was severe but has improved.
- Endocrine: History of elevated blood glucose levels.
- General: Facial burning sensation, describes feeling generally unwell.
PHYSICAL EXAM
General: Alert, moderate acute distress. Lying on the bed with his eyes closed tightly. This was a significant improvement from previous mental status upon arrival. After blood pressure improved, he mentating more appropriately.
Skin: Warm, dry. Flushed
Head: Normocephalic, atraumatic.
Neck: Supple, trachea midline.
Eyes, Ears, Nose, Mouth, and Throat: Oral mucosa moist.
Cardiovascular: Normal peripheral perfusion, no edema.
Respiratory: Respirations are non-labored.
Gastrointestinal: Abdomen nondistended.
Back: Normal range of motion, normal alignment.
Musculoskeletal: Normal range of motion, normal strength.
Neurological: Alert and oriented to person, place, time, and situation, no focal neurological deficit observed.
Psychiatric: Flat affect, minimally cooperative, appropriate mood
PLAN
The medical team plans to order laboratory tests to evaluate potential diabetic ketoacidosis and manage elevated blood pressure. There will be intravenous lines placed for management and diagnostic purposes.
DIFFERENTIAL DIAGNOSIS
The Differential Diagnosis includes, in no particular order and is not limited to:
1. HHS
2. Diabetic ketoacidosis
3. Hypertensive crisis
4. Hypoglycemia
5. Hyperglycemia
6. Anxiety or panic disorder
7. Vestibular disturbance
8. Electrolyte imbalance
9. Transient ischemic attack
10. Stroke
CARE-UPDATE
12/14/24 - 23:01
Anion gap is low at 7.9. Glucose levels remain elevated at 531, indicating poor glycemic control. The patient is dehydrated, potentially contributing to metabolic derangements. Beta-hydroxybutyrate is measured at 0.33, suggesting absence of
significant ketosis. Adjustments to fluid management and diabetes treatment regimen should be considered to address the hyperglycemia and dehydration.
Disposition:
SUMMARY OF ENCOUNTER
The patient, a 49-year-old male, presented to the emergency department with altered mental status. The working diagnosis is hyperosmolar hyperglycemic state (HHS). Initial laboratory workup showed high glucose levels at 531 mg/dL, normal anion gap
at 7, normal sodium levels at 130 mEq/L, potassium at 4.4 mEq/L, and an elevated serum bicarbonate of 26 mEq/L. Blood urea nitrogen (BUN) was slightly elevated at 24 mg/dL. Arterial blood gas (ABG) showed a normal pH of 7.4. A CT of the head was
negative for acute pathology. The EKG revealed a sinus rhythm with a rate of 93 bpm, normal intervals and axis, with no evidence of acute ischemia. When compared with an earlier EKG, there was noted limited T-wave inversion inferiorly, believed to
be a transient change.
DISPOSITION
The patient is to be admitted to the hospital service for further management.
INDEPENDENT REVIEW OF LABS AND INTERPRETATION OF TESTS
My independent review of the metabolic panel shows a normal anion gap at 7, elevated glucose at 531 mg/dL, normal sodium at 130 mEq/L, potassium at 4.4 mEq/L, and an elevated bicarbonate at 26 mEq/L. BUN is slightly elevated at 24 mg/dL, consistent
with dehydration and renal perfusion issues likely secondary to hyperglycemia.
My independent review of the ABG indicates a normal pH of 7.4.
My independent interpretation of the EKG shows sinus rhythm with a heart rate of 93 bpm, normal intervals, normal axis, and no evidence of acute ischemia. When compared with a previous EKG, limited T-wave inversion was noticed inferiorly.
PATIENT EDUCATION AND COUNSELING
The patient was educated on the importance of strict glucose control and recognizing the symptoms of hyperglycemia to prevent further episodes of HHS and potential complications.
MEDICAL DECISION MAKING
- Complexity of Data Reviewed: Chronic conditions affecting care include diabetes and hypertension. Differential diagnoses considered include acute myocardial infarction, diabetic ketoacidosis, hypertensive crisis, hypoglycemia, hyperglycemia,
anxiety or panic disorder, vestibular disturbance, electrolyte imbalance, transient ischemic attack, and stroke.
- Data:
Category 1:
Anion gap, glucose, sodium, potassium, bicarbonate, and BUN were reviewed. ABG and CT head were also reviewed.
Category 2:
Independent interpretation of EKG was performed.
- Risk:
Admission was considered due to the complex nature of patients presentation, altered mental status, and significant laboratory abnormalities, specifically for management of severe hyperglycemia and potential dehydration.
DIAGNOSIS
Hyperosmolar Hyperglycemic State (ICD-10: E11.00)
Unspecified Hypertension (ICD-10: I10)
Type 2 Diabetes Mellitus with Unspecified Complications (ICD-10: E11.9)
Past History
Past History
ED Past Medical History: CVA (Presumed right MCA stroke August 2022), HTN, Hypercholesterolemia, IDDM, Psychiatric (Anxiety) and Other (Diverticulosis / diverticulitis)
ED Past Surgical History: None
Social History
Tobacco: Non-smoker
Alcohol: None
Drug: None
Personal:
Living: with family
Employment: Employed
Family History
Family History: Diabetes
Phy Exam
Physical Exam
Physical Exam:
.
Scores
Heart Score for Chest Pain Patients
STEMI patient?: No
History: Slightly or Non-Suspicious
ECG: Normal
Age: >45 - <65 years
Risk Factors: 1 or 2 Risk Factors
Troponin: </= Normal Limit
Heart Score for Chest Pain Patients: 2
Heart Score Risk: 2.5% MACE over next 6 weeks
Course
Orders/Labs/Results
Orders:
Orders
12/14/24 21:35
Electrocardiogram (*1) Urgent
Reason for Study: Chest Pain
EKG- Treatment ONCE
12/14/24 21:52
Metoprolol [Lopressor] 5 mg .ROUTE .STK-MED ONE
12/14/24 21:53
Bedside Glucose- Treatment Q1H
IV Insert/Care/Rem.- Treatment PRN
0.9% Sodium Chloride 1000 ml [Nss] 1,000 ml IV BOLUS
0.9% Sodium Chloride 1000 ml [Nss] 1,000 ml IV BOLUS
12/14/24 21:54
CT Head W/o Iv Contrast Urgent
Comment:
Reason For Exam: ams
Metoprolol [Lopressor] 5 mg IV NOW STA
12/14/24 22:02
B-Hydroxybutyrate Urgent
Complete Blood Count/With Diff Urgent
Comprehensive Metabolic Panel Urgent
Glycohemoglobin (HgbA1c) Urgent
Troponin I Urgent
12/14/24 22:03
Arterial Blood Gas Urgent
%Oxygen/Room Air: ra
12/14/24 22:09
Electrocardiogram (*1) Urgent
Reason for Study: Chest Pain
EKG- Treatment ONCE
12/14/24 22:36
Urinalysis Urgent
Date Specimen was Collected: 12/14/24
Time Specimen was Collected: 22:34
Urine Microscopic Urgent
Date Specimen was Collected: 12/14/24
Time Specimen was Collected: 22:34
12/14/24 23:13
Insulin Human Regular [Novolin R] 11 units IV NOW STA
12/15/24 01:22
Admit/Transfer Patient As Directed
Co-Sign Provider:
Level of Care: Observation services
Assign to:: Telemetry
Physician / Group: Alannah
Diagnosis: Hyperglycemia
Reason for Telemetry: Chest Pain syndromes
Date to Stop Telemetry: 12/17/24
Time to Stop Telemetry: 11:00
PRN Pain Medication Management As Directed
May give lesser potent ordered pain med per pt: Yes
preference::
Protocol:: Medication orders for pain may be administered in a
manner that supports deferring to patient preference
when the pt is:
- Requesting an ordered lesser potent pain medication.
Least to most potent pain medications are defined
as: acetaminophen < NSAID < tramadol < opioids
(morphine, oxycodone, hydromorphone).
- Requesting a lesser dose of the same medication IF
ORDERED.
- Requesting a less intrusive route of administration
if both routes are prescribed by the provider (PO <
IV).
12/15/24 01:23
Code Status As Directed
Resuscitation Status: Full Code
12/15/24 01:30
0.9% Sodium Chloride 1000 ml [Nss] 1,000 ml IV 150 mls/hr
12/15/24 01:35
Bedside Glucose Monitoring-ONCE As Directed
12/15/24 01:40
PRN Pain Medication Management As Directed
May give lesser potent ordered pain med per pt: Yes
preference::
Protocol:: Medication orders for pain may be administered in a
manner that supports deferring to patient preference
when the pt is:
- Requesting an ordered lesser potent pain medication.
Least to most potent pain medications are defined
as: acetaminophen < NSAID < tramadol < opioids
(morphine, oxycodone, hydromorphone).
- Requesting a lesser dose of the same medication IF
ORDERED.
- Requesting a less intrusive route of administration
if both routes are prescribed by the provider (PO <
IV).
12/15/24 02:00
Flush (0.9% Sodium Chloride) [Flush (Nss)] See Dose Instructions IV PER PROTOCOL
12/15/24 02:29
Acetaminophen [Tylenol] 650 mg PO Q4HPRN PRN
Bisacodyl [Dulcolax] 10 mg RECTAL [id number] PRN
Dextrose 50%-Water [Dextrose 50% Syringe] 12.5 grams IV [id number] PRN
Docusate W/Senna [Senokot-S] 1 tablet PO BIDPRN PRN
Glucagon [GlucaGen] 1 mg IM PRN PRN
Metoprolol [Lopressor] 5 mg IV Q6HPRN PRN
Ondansetron Injectable [Zofran] 4 mg IV Q6HPRN PRN
Polyethylene Glycol Powder [Miralax] 17 grams PO DAILYPRN PRN
12/15/24 02:29
Diabetes Management by Nurse Practitioner Routine
Consulting Provider: Taylor Manuel
Was provider already notified?: No
Reason for Consult: Insulin Management
Date consulting provider notified: 12/15/24
Time consulting provider notified: 07:35
Notified:: Provider
Activity As Directed
Activity Level: With Assistance
Bedside Glucose Monitoring As Directed
Frequency: AC&HS
Additional Instructions:: Change to q6h if pt on TPN, tube feeding or not eating
Pneumatic Compression Sleeves As Directed
Type: Knee high
Vital Signs As Directed
Frequency: Per unit guidelines
Pulse Ox/spot Check [RESP] Routine
Quantity: 1
DX Deep Vein Thrombosis Video Routine
12/15/24 Breakfast
1800 calorie (15 carb) Diabetic
At Your Request: Full Participation
Diabetic Diet: Sodium, 2 Gram
12/15/24 07:30
Insulin Aspart High Resistance [Novolog Flexpen-High Resistance] See Protocol SC AC
Insulin Aspart Pen [Novolog Flexpen] 25 units SC AC
12/15/24 07:33
Basic Metabolic Panel IN AM
12/15/24 08:00
Aspirin Chewable [Low Strength Aspirin] 81 mg PO DAILY
Insulin Glargine Lantus [Lantus] 90 units Subcutaneous Insulin Syringe [Syringe-Insulin] 0 unit SC DAILY
Metoprolol [Lopressor] 100 mg PO BID
Valsartan [Diovan] 320 mg PO DAILY
12/15/24 22:00
Atorvastatin [Lipitor] 80 mg PO HS
12/17/24 11:00
DC Protocol for Telemetry ONCE
Abnormal Lab Results
12/14/24 12/14/24 12/14/24
21:38 22:02 22:03
MPV 11.5 H fL
(7.4-10.4)
Absolute Monos (auto) 0.7 H 10^3/uL
(0.1-0.6)
pH 7.50 H
(7.35-7.45)
pCO2 29 L mmHg
(35-48)
ABG O2 Sat (Measured) 98.1 H %
(94-98)
Sodium 130 L mmol/L
(135-145)
Chloride 97 L mmol/L
(98-107)
BUN 24 H mg/dl
(9-20)
Glucose 531 H* mg/dl
(70-99)
Hemoglobin A1c 14.3 H %
(4.0-5.9)
Urine Ketones
Urine Occult Blood
Urine RBC
Urine Bacteria
Urine Glucose
Urine Albumin
B-Hydroxybutyrate 0.33 H mmol/L
(0.02-0.27)
POC Glucose 485 H* mg/dl
(70-99)
12/14/24 12/14/24 12/14/24
22:36 23:10 23:43
MPV
Absolute Monos (auto)
pH
pCO2
ABG O2 Sat (Measured)
Sodium
Chloride
BUN
Glucose
Hemoglobin A1c
Urine Ketones 1+ A
(Negative)
Urine Occult Blood 3+ A
(Negative)
Urine RBC 11-15 A /HPF
(0-2)
Urine Bacteria Few A
(Negative)
Urine Glucose 4+ A
(Negative)
Urine Albumin 3+ A
(Neg - Trace)
B-Hydroxybutyrate
POC Glucose 431 H mg/dl 396 H mg/dl
(70-99) (70-99)
12/15/24 12/15/24
00:36 01:23
MPV
Absolute Monos (auto)
pH
pCO2
ABG O2 Sat (Measured)
Sodium
Chloride
BUN
Glucose
Hemoglobin A1c
Urine Ketones
Urine Occult Blood
Urine RBC
Urine Bacteria
Urine Glucose
Urine Albumin
B-Hydroxybutyrate
POC Glucose 362 H mg/dl 341 H mg/dl
(70-99) (70-99)
12/14/24 22:02
12/15/24 00:00
Vital Signs
Initial and Last Documented VS:
Initial Vital Signs
Temp BP
98.2 F 247/152
12/14/24 21:32 12/14/24 21:32
Last Documented Vital Signs
Temp Pulse Resp BP Pulse Ox
97.6 F 82 16 159/83 99
12/16/24 19:12 12/16/24 20:28 12/16/24 19:12 12/16/24 20:28 12/16/24 19:12
*Radiology
Radiology exam reviewed: radiology read reviewed
*Pulse Oximetry
SaO2: 99
Oxygen Mode of Delivery: Room air
Patient hypoxic: no
*Critical Care Note
Total Time (30-74mins, 75-104mins- exclusive of procedures): 40 (Critical care statement: A total of 40 minutes of critical care time was provided for this patient. This time is separate from time utilized to perform the aforementioned documented
procedures. Aggregate critical care time includes only time during which I was engaged in work directl)
ED Attending Note
-
Portions of this chart may have been created with voice recognition software.� Occasional wrong word or��sound alike� substitutions may have occurred due to the inherent limitations of voice recognition software.
Discharge Plan
Departure
Patient Disposition: Admit
Date of Disposition: 12/15/24
Time of Disposition: 00:34
Presentation/result/management discussed w/ accepting MD/DO: Hospitalist
Condition: Fair
Discharge Problem:
Hyperosmolar hyperglycemic state (HHS), Toxic metabolic encephalopathy
Interventions
Interventions:
*General Assessment Last Done: 12/14/24 21:36
*ED- Fall Risk Assessment Last Done: 12/14/24 21:48
*ED Influenza Vaccine History Last Done: 12/14/24 21:36
*Nursing Disposition Last Done: 12/15/24 02:18
ED- Cardiac Assessment Last Done: 12/14/24 21:48
Discharge Date and Time
Discharge Date/Time: 12/15/24 02:18
[2024-12-14] MEDS: LOPRESSOR 5 MG IV (21:57)
[2024-12-14] MEDS: NSS 1000 IV ×2 (21:58→21:59)
[2024-12-14 22:11] LABS: Hematocrit 46.5 % (39.0-52.0); Hemoglobin 16.2 g/dL (13.0-18.0); Mean Corp Hgb Conc. 34.8 g/dL (33.0-37.0); Mean Corpuscular Volume 81.6 fL (80.0-94.0); Nucleated Red Blood Cells % 0 % (-); Platelet Count 206 10^3/uL (130-400); Red Cell Dist. Width 12.9 % (11.5-14.5)
[2024-12-14 22:12] LABS: B.E. 0.6 mmol/L; HCO3 22.6 mmol/L (21-28); O2 Saturation % 98.1 % (94-98); PCO2 29 mmHg (35-48); PO2 99 mmHg (83-108)
[2024-12-14 22:35] LABS: Troponin I 0.013 ng/ml
[2024-12-14 22:43] LABS: Urine Character Clear (Clear)
[2024-12-14 22:48] LABS: ALT (SGPT) 30 U/L (0-50); AST (SGOT) 25 U/L (17-59); Albumin 4.3 g/dl (3.5-5.0); Alkaline Phosphatase 104 U/L (38-126); Blood Urea Nitrogen 24 mg/dl (9-20); Calcium 9.7 mg/dl (8.4-10.2); Carbon Dioxide 26 mmol/L (22-30); Chloride 97 mmol/L (98-107); Estimated Creatinine Clearance 107 ml/min; Glucose 531 mg/dl (70-99); Potassium 4.4 mmol/L (3.5-5.1); Sodium 130 mmol/L (135-145); Total Protein 7.6 g/dl (6.3-8.2); eGFR > 60.00
[2024-12-14 23:12] LABS: Glucose - Point of Care 431 mg/dl (70-99)
[2024-12-14] MEDS: NOVOLIN R 11 UNITS IV (23:18)
[2024-12-14 23:27] LABS: Urine Squamous Cell 0-2 /LPF (Few)
[2024-12-14 23:29] LABS: Urine White Cell 0-2 /HPF (0-5)
[2024-12-14 23:45] LABS: Glucose - Point of Care 396 mg/dl (70-99)
[2024-12-15] VITALS (24 sets, daily range): BP systolic 114–203; BP diastolic 63–115; BMI 36.0
[2024-12-15 00:38] LABS: Glucose - Point of Care 362 mg/dl (70-99)
--- NOTE | 2024-12-15 00:43 | HPS.HSE ---
Family Physician
-
Family Physician: INTERVIEWE UNKNOWN - PT NOT
Chief Complaint
-
Chest pain
History of Present Illness
This is a 49-year-old male with past medical history significant for diabetes, hypertension, hyperlipidemia, CVA presenting to the emergency department with complaint of chest pain and dizziness.
Initially when he presented to the emergency department he said he was dizzy had some shortness of breath and chest pain. He was also confused, agitated and stated that he was not cannot make it. He had elevated blood sugar readings as well as
severe hypertension with SBP greater than 240.
Patient stated that his blood glucose has been running high since September. Just before then he had an hypoglycemic episode episode after taking insulin without eating. Due to this is insulin regimen was significantly decreased. Over time his
blood glucose has risen and they have been titrating up his insulin. He is now takes Semglee 18 units in the morning with 20 units of NovoLog with each meals. Despite this I am showing records of his Dexcom showing an average glucose of over 350
over the last 3 months. They often get very high numbers. Patient reports that he is very sensitive to carbs and his sugars are sure of anytime he eats anything with carbs. He reports compliance with his insulin regimen. He had an episode that
was similar to today with some dizziness lightheadedness and elevated blood pressure and he was seen at [facility] on Sunday. At the time he had hyperglycemia was given fluids and insulin and then was discharged to follow-up. He followed up
with his endocrine nurse practitioner who increased his regiment to Semglee 90 units with 25 units of NovoLog with meals. Despite this patient's blood sugar still remains elevated. He reports increased thirst and some polyuria. He reports
compliance with his blood pressure regimen as well.
In the emergency department he was afebrile blood pressure 121/70 with a pulse of 92, respirate rate of 20 and he was satting 98% on room air. CT of the head was unremarkable. ECG shows normal sinus rhythm at a rate of 93. Troponin was 0.013.
CBC was unremarkable.
Sodium was 130 corrected to 137, bicarb 26 potassium 4.4 BUN and creatinine were normal. Glucose was 531. ABG 7 point 07/03/ 2.6. Beta-hydroxybutyrate was 0.33. UA notable for 4+ glucose and 1+ ketones. Repeat glucose after initial
treatment in the ED was 360.
Medical History
Past Medical History
Past Medical History: Reports Other
Additional Past Medical History:
htn
hld
DM
anxiety
diverticulitis
Past Surgical History: Reports None
Social History
Tobacco: Non-smoker
Alcohol: None
Drug: None
Personal: Single
Living: With Family
Employment: Not Employed
Family History
Family History: Not pertinent
Allergies / Home Medications
Allergies reflects when Allergies were last updated in [employer].
Home Medications with original date entered in [employer]
Allergy/Medication List:
Allergies
Allergy/AdvReac Type Severity Reaction Status Date / Time
house dust Allergy Unknown Verified 12/14/24 21:35
mold Allergy Unknown Verified 12/14/24 21:35
Penicillins Allergy Unknown Verified 12/14/24 21:35
Home Medications
atorvastatin 80 mg tablet 80 mg PO HS 12/15/24
insulin aspart U-100 100 unit/mL subcutaneous solution (Novolog U-100 Insulin aspart) 25 unit SC TID 12/15/24
insulin glargine 100 unit/mL subcutaneous solution 90 unit SC DAILY 12/15/24
metoprolol tartrate 100 mg tablet 100 mg PO BID 12/15/24
valsartan 320 mg-hydrochlorothiazide 12.5 mg tablet 1 tab PO DAILY 12/15/24
Review of Systems
-
Constitutional: Reports No Symptoms
EENT: Reports No Symptoms
Respiratory: Reports No Symptoms
Cardiac: Reports No Symptoms
Abdomen/GI: Reports No Symptoms
: Reports No Symptoms
Musculoskeletal: Reports No Symptoms
Skin: Reports No Symptoms
Neurological: Reports No Symptoms
Endocrine: Reports No Symptoms
Hematologic/Lymphatic: Reports No Symptoms
Psych: Reports No Symptoms
Physical Exam
Vital Signs
Vital Signs
Temp Pulse Resp BP Pulse Ox
98.2 F 92 21 121/70 98
12/14/24 21:32 12/15/24 00:30 12/15/24 00:30 12/15/24 00:30 12/14/24 23:30
Physical Exam
General: Well Developed, Well Nourished and No Apparent Distress
HEENT: NormoCephalic, Moist mucous membranes and Atraumatic
Respiratory: Clear
Cardiac: S1/S2 and Regular Rhythm; No Murmur or Rub
GI: Soft, Non Tender, Non Distended and Normal Bowel Sounds; No Organomegaly
Rectal: Deferred by Provider
Musculoskeletal: No Clubbing, No Cyanosis and No Edema
Skin: No Rash
Neuro: AO x 3 and Nonfocal/grossly intact
Psych: Calm
Laboratory Results
-
12/14/24 22:02
Laboratory Results
pH 7.50 (7.35-7.45) H 12/14/24 22:03
pCO2 29 mmHg (35-48) L 12/14/24 22:03
pO2 99 mmHg (83-108) 12/14/24 22:03
HCO3 22.6 mmol/L (21-28) 12/14/24 22:03
Total Bilirubin 0.6 mg/dl (0.2-1.3) 12/14/24 22:02
AST 25 U/L (17-59) 12/14/24 22:02
ALT 30 U/L (0-50) 12/14/24 22:02
Alkaline Phosphatase 104 U/L (38-126) 12/14/24 22:02
Troponin I 0.013 ng/ml 12/14/24 22:02
Data Reviewed
-
CT Scan: Report Reviewed by me
Medical Tests (Nuc Med, Echo, EKG etc): Image Personally Visualized and interpreted
Lab Data: Labs Reviewed by me
Old Records: Reviewed
Impression/Plan
-
IMPRESSION:
Uncontrolled hyperglycemia on basal bolus insulin with reliable compliance. No DKA. Possibly hypertensive encephalopathy
PLAN:
1. Hypergylcemia -patient is pending initiation of insulin pump next month, in the mean times it appears his bolusing may not be effective due to delay gastric emptying. 4-10 with an element of noncompliance. Patient's history suggest compliance
but this cannot be confirmed fully. Further dietary indiscretion may be playing a significant role in setting of work stress. Will monitor regimen while admitted
- admit to telemetry observation
- Continue IV hydration with normal saline
- continue lantus as per his most recent regimen of 90 units q am
- novolog 25 units tidac
- high resistance sliding scale
- observe transients in glucose
- a1c in am
- diabetes nurse practitioner consultation
2. HTN -possible hypertensive encephalopathy BP improved with 5 of iv metoprolol and patient now a&ox3, no focal deficits.
- cntinue metoprolol tartrate 100 bid
- continue valsartan and hctz
- prn metoprolol iv
3. CVA
- continue asa 81 and atorvastatin 80
DVT PPX - SCD
Code status - Full Code
[2024-12-15 01:25] LABS: Glucose - Point of Care 341 mg/dl (70-99)
[2024-12-15] MEDS: NSS 1000 IV (01:39)
[2024-12-15] MEDS: FLUSH (NSS) 1 FLUSH IV (01:39)
[2024-12-15 02:40] LABS: Glucose - Point of Care 374 mg/dl (70-99)
[2024-12-15] MEDS: NOVOLOG FLEXPEN 5 UNITS SC (03:09)
[2024-12-15 04:11] LABS: Glucose - Point of Care 311 mg/dl (70-99)
[2024-12-15] MEDS: LOPRESSOR 5 MG IV (04:23)
[2024-12-15] MEDS: LOW STRENGTH ASPIRIN 81 MG PO (08:01)
[2024-12-15] MEDS: DIOVAN 320 MG PO (08:01)
[2024-12-15] MEDS: LOPRESSOR 100 MG PO ×2 (08:02→19:33)
[2024-12-15 08:05] LABS: Glucose - Point of Care 282 mg/dl (70-99)
[2024-12-15] MEDS: ZOFRAN 4 MG IV (08:07)
[2024-12-15 08:20] LABS: Blood Urea Nitrogen 18 mg/dl (9-20); Calcium 8.3 mg/dl (8.4-10.2); Carbon Dioxide 24 mmol/L (22-30); Chloride 108 mmol/L (98-107); Estimated Creatinine Clearance > 125 ml/min; Glucose 304 mg/dl (70-99); Potassium 3.9 mmol/L (3.5-5.1); Sodium 137 mmol/L (135-145); eGFR > 60.00
[2024-12-15] MEDS: ORETIC 12.5 MG PO (08:40)
--- NOTE | 2024-12-15 09:19 | W.PN.HOSP.TC ---
Today's Communication/Plan
-
Increase HCTZ, consider additional afternoon coverage
Insulin titration per DM team
Accu-Cheks
Assessment / Plan
Assessment / Plan
#IDDM 2 with hyperglycemia
- Has severe insulin resistance; Home regimen Lantus 90 units QAM, NovoLog 25 units AC
- No known microvascular complications though is high risk with A1c 14.3% on labs here
- No signs of ketosis; was started on IV hydration and resumed on home meds upon arrival here
- Diabetes CERTIFIED PROSTHETIST/ORTHOTIST started SGLT2i, transitioned Lantus to 50 units twice daily and mealtime aspart to 20 units
- Continue current regimen and monitor ISS usage, uptitrate regimen as needed
- Blood glucose goal 140-180 here
#Primary hypertension
- States he has a prolonged history of hypertension that was first noticed at age 16
- No signs of secondary etiologies; does have history of CVA that may be related to hypertension
- Current regimen includes metoprolol tartrate, valsartan, HCTZ; increased HCTZ to 25 mg
- Continue to monitor blood pressure and uptitrate regimen as needed; consider DHP-CCB
- As needed PO hydralazine for SBP >200
#H/O CVA
- Unclear etiology, possibly lacunar with known hypertension and diabetes
- No obvious neurodeficits here
Diet: Diabetic, 1800-calorie, 2 g sodium restricted
DVT: SQ Lovenox
Code: Full
Anticipated Discharge: 24 - 48 hours
Subjective/Interval History
-
Date of Service: December 15, 2024
Seen and examined at the bedside. No acute events reported overnight. This morning did become hypertensive with SBP near 210 mmHg, otherwise stable and on room air.
Blood pressure did improve following morning medications with SBP down to 168 mmHg. Denies any complaints at time of my assessment.
Hemoglobin A1c returned at 14.3%. Accu-Cheks remain significantly hyperglycemic, glucose mid 200s to mid 300s
Objective Data
-
Labs:
Laboratory Results
12/14/24 12/14/24 12/15/24
22:02 22:03 00:00
WBC 8.8
Hgb 16.2
Hct 46.5
Plt Count 206
HCO3 22.6
Sodium 130 L Cancelled
Potassium 4.4 Cancelled
Chloride 97 L Cancelled
Carbon Dioxide 26 Cancelled
BUN 24 H Cancelled
Creatinine 0.9 Cancelled
Glucose 531 H* Cancelled
Calcium 9.7 Cancelled
Total Bilirubin 0.6
AST 25
ALT 30
Alkaline Phosphatase 104
12/15/24 12/15/24
02:00 07:33
WBC
Hgb
Hct
Plt Count
HCO3
Sodium Cancelled 137
Potassium Cancelled 3.9
Chloride Cancelled 108 H
Carbon Dioxide Cancelled 24
BUN Cancelled 18
Creatinine Cancelled 0.8
Glucose Cancelled 304 H
Calcium Cancelled 8.3 L
Total Bilirubin
AST
ALT
Alkaline Phosphatase
Vital Signs:
Vital Signs
Temp Pulse Resp BP Pulse Ox
97.9 F 93 18 202/108 97
12/15/24 07:34 12/15/24 08:01 12/15/24 07:34 12/15/24 08:01 12/15/24 07:34
I&O
12/14/24 12/15/24 12/16/24
06:59 06:59 06:59
Intake Total 0 / 0
Output Total 250 / 250
Balance -250 / -250
Review of Systems
-
History Source: Patient
All other systems: Reviewed and negative
Physical Exam
-
General: Well Developed, No Apparent Distress and Obese
HEENT: Normocephalic, Atraumatic, Moist Mucous Membranes and Anicteric
Respiratory: Clear to Auscultation and Non Labored Respirations; Negative Accessory Resp Muscle Use
Cardiac: Regular Rhythm and S1/S2; Negative Murmur, Rub, Carotid Bruits or Gallop
GI: Soft, Nontender, Nondistended and Normal Bowel Sounds
Musculoskeletal: No Clubbing, No Cyanosis and No Edema
Skin: Warm and Dry; Negative Rash
Neuro: AO x 3, Nonfocal/Grossly Intact and Central Nerve's Intact
Psych: Calm
Data Reviewed
-
Labs: Labs Reviewed by me, Discussed with Physician and Discussed with Patient
[2024-12-15 09:51] LABS: Glycohemoglobin (HgbA1c) 14.3 % (4.0-5.9)
[2024-12-15] MEDS: NOVOLOG FLEXPEN 20 UNITS SC ×3 (09:54→17:17)
[2024-12-15] MEDS: NOVOLOG FLEXPEN-HIGH RESISTANCE 7 UNITS SC ×2 (09:55→13:09)
[2024-12-15] MEDS: FARXIGA 10 MG PO (09:56)
--- NOTE | 2024-12-15 10:20 | PN.DE.MGMTRT ---
Insulin Management
- -
12/15/24:Diabetes Management Consult
49 year old male admitted with chest pain, dizziness, and altered mental status. PMH: HTN, HLD, Right MCA CVA (2022), Diverticulitis and T2DM.
Glucose on admission to the ED was 531 mg/dL.
Pt reports that he was previously seeing an advisory intern from [facility] and is now managed by LIZ Gay.
States he had an episode of significant hypoglycemia in July 2024, after which his insulin regimen was reduced but doesn't remember the dose it was reduced to. His at bedside reports that patient's blood sugar is always elevated, Pt says that
assists with insulin administration at home, and endorses recently persistent hyperglycemia, with CGM consistently reading 'HIGH,' and A1c >12% since July. Current A1c 14.3%, Cr 0.8, eGFR >60.
Pt awake, alert, oriented, resting in bed, able to discuss diabetes care plan. at bedside.
States he was taking Semglee 90 units in AM tho records from his Endo office on 12/11/24 state that he was prescribed 44 units BID, 25 units NovoLog AC. States he was taking Jardiance 25 mg but that was recently discontinued. Reports he is getting
switched to a [employer]tronic insulin pump which was already ordered.
Pt has a CGM- Jacob 3 plus; his sensor hx shows 96% time above range with average blood sugar of 380 mg/dL and 0% time in range in the past 3 months.
Pt reports peripheral edema and numbness in feet consistent with peripheral neuropathy, as well as increased thirst and polyuria.
Discussed risk of hyperglycemia and uncontrolled diabetes, Emphasized importance of exercise, and adherence to medication and diabetic diet.
Discussed risk of diabetes related acute and chronic complications like CVA, [place], CKD, Diabetic Neuropathy and Retinopathy especially with an A1C that high.
His glucose has been elevated since admission. HS glucose trended up to 485 and fasting 304 V today.
Will adjust Lantus to 50 units BID, NovoLog 20 units AC, and low corrective insulin with meals. Start Farxiga 10 mg daily, resume Jardiance 25mg at discharge.
Pt and agree with plan. Discussed with nurse. Will continue to follow.
Diabetes History
- -
Type of Diabetes: 2 requiring insulin
Pre-Admission Diabetes Regimen
12/14/24 12/15/24 12/15/24
22:02 00:00 02:00
Creatinine 0.9 Cancelled Cancelled
12/15/24
07:33
Creatinine 0.8
Lab Results
Hemoglobin A1c 14.3 % (4.0-5.9) H 12/14/24 22:02
Insulin Pump Settings
IP Diabetes Regimen
12/14/24 12/14/24 12/14/24
21:38 22:02 23:10
Glucose 531 H*
POC Glucose 485 H* 431 H
12/14/24 12/15/24 12/15/24
23:43 00:00 00:36
Glucose Cancelled
POC Glucose 396 H 362 H
12/15/24 12/15/24 12/15/24
01:23 02:00 02:39
Glucose Cancelled
POC Glucose 341 H 374 H
12/15/24 12/15/24 12/15/24
04:10 07:33 08:04
Glucose 304 H
POC Glucose 311 H 282 H
Patient Education
[2024-12-15 12:17] LABS: Glucose - Point of Care 267 mg/dl (70-99)
[2024-12-15] MEDS: LANTUS 0.5 UNITS SC ×2 (13:08→22:00)
[2024-12-15 16:12] LABS: Glucose - Point of Care 95 mg/dl (70-99)
[2024-12-15] MEDS: LOVENOX 40 MG SC (17:16)
[2024-12-15] MEDS: NOVOLOG FLEXPEN-HIGH RESISTANCE 1 UNITS SC (17:17)
--- NOTE | 2024-12-15 18:02 | PTCARENOTE ---
Received pt from [facility] via wheelchair. Pt settled into the room. at bedside. No change from previous assessment. Telemetry placed on pt.
--- NOTE | 2024-12-15 18:48 | CM ---
IA complete. Independent with ADLs and IADLs. LIves in a 2story home with his . Ther are 3 steps sat the entrance with a railing and 16 steps in the house. The full BR is on the 2nd floor.. Ther is No hx of HH, SNF,DME, or home O2. Confirmed
PCP, Rx,insurance and drug coverage.
Blood sugars remain high 200-300's
PCP: Shala Garcia
RX: [facility]
Plan: home with no needs
[2024-12-15 20:48] LABS: Glucose - Point of Care 117 mg/dl (70-99)
[2024-12-15] MEDS: LIPITOR 80 MG PO (22:00)
[2024-12-15] MEDS: TYLENOL 650 MG PO (22:05)
[2024-12-16] VITALS (7 sets, daily range): BP systolic 125–175; BP diastolic 79–110
[2024-12-16 02:40] LABS: Glucose - Point of Care 121 mg/dl (70-99)
[2024-12-16 07:52] LABS: Hematocrit 41.9 % (39.0-52.0); Hemoglobin 14.3 g/dL (13.0-18.0); Mean Corp Hgb Conc. 34.1 g/dL (33.0-37.0); Mean Corpuscular Volume 85.7 fL (80.0-94.0); Nucleated Red Blood Cells % 0 % (-); Platelet Count 180 10^3/uL (130-400); Red Cell Dist. Width 13.2 % (11.5-14.5)
[2024-12-16 08:00] LABS: Glucose - Point of Care 107 mg/dl (70-99)
[2024-12-16] MEDS: DIOVAN 320 MG PO (08:11)
[2024-12-16] MEDS: LOPRESSOR 100 MG PO ×2 (08:12→20:28)
[2024-12-16] MEDS: ORETIC 25 MG PO (08:12)
[2024-12-16] MEDS: FARXIGA 10 MG PO (08:12)
[2024-12-16] MEDS: LOW STRENGTH ASPIRIN 81 MG PO (08:12)
[2024-12-16] MEDS: LANTUS 0.5 UNITS SC ×2 (08:14→20:27)
[2024-12-16] MEDS: NOVOLOG FLEXPEN-HIGH RESISTANCE 1 UNITS SC ×2 (08:16→12:17)
[2024-12-16] MEDS: NOVOLOG FLEXPEN 20 UNITS SC ×2 (08:17→12:16)
[2024-12-16 08:42] LABS: Blood Urea Nitrogen 18 mg/dl (9-20); Calcium 8.7 mg/dl (8.4-10.2); Carbon Dioxide 29 mmol/L (22-30); Chloride 106 mmol/L (98-107); Estimated Creatinine Clearance > 125 ml/min; Glucose 108 mg/dl (70-99); Magnesium 2.2 mg/dl (1.6-2.3); Potassium 3.7 mmol/L (3.5-5.1); Sodium 135 mmol/L (135-145); eGFR > 60.00
[2024-12-16 09:30] LABS: Glucose - Point of Care 69 mg/dl (70-99)
[2024-12-16 09:52] LABS: Glucose - Point of Care 81 mg/dl (70-99)
--- NOTE | 2024-12-16 09:59 | PTCARENOTE ---
At approximately 9:30 AM patient burst out of room stating that 'no one is helping him'. Patient appeared anxious and agitated. RN assessed patient. Patient verbalized complaint of chest pain. EKG obtained -results showed normal sinus rhythm with T
wave abnormality. Blood glucose checked 69, rechecked in 15 minutes -81 BGM. BGM Q2 hr x 2 and a 3am. Vital signs elevated; blood pressure 170/110mmHg. Patient reporting a throbbing headache and visual disturbance describing 'floaters' and 'hazy
vision' when head turned to the left. Patient received all morning medications as scheduled, provider notified and at bedside.
--- NOTE | 2024-12-16 10:05 | W.PN.HOSP.TC ---
Today's Communication/Plan
-
Start amlodipine 2.5 twice daily
Continue remainder of antihypertensives
Continue to titrate insulin as needed
Assessment / Plan
Assessment / Plan
#IDDM 2 with hyperglycemia
- Has severe insulin resistance; Home regimen Lantus 90 units QAM, NovoLog 25 units AC
- No known microvascular complications though is high risk with A1c 14.3% on labs here
- No signs of ketosis; was started on IV hydration and resumed on home meds upon arrival here
- Diabetes CAREERS ADVISER started SGLT2i, transitioned Lantus to 50 units twice daily and mealtime aspart to 20 units
- Continue current regimen and monitor ISS usage, uptitrate regimen as needed
- Blood glucose goal 140-180 here
#Primary hypertension
- States he has a prolonged history of hypertension that was first noticed at age 16
- No signs of secondary etiologies; does have history of CVA that may be related to hypertension
- Current regimen includes metoprolol tartrate, valsartan, HCTZ; increased HCTZ to 25 mg; added amlodipine 2.5 mg BID
- Monitor BP and uptitrate regimen as needed
- As needed PO hydralazine for SBP >200 or Sx
#H/O CVA
- Unclear etiology, possibly lacunar with known hypertension and diabetes
- No obvious neurodeficits here
Diet: Diabetic, 1800-calorie, 2 g sodium restricted
DVT: SQ Lovenox
Code: Full
Anticipated Discharge: 24 - 48 hours
Subjective/Interval History
-
Date of Service: December 16, 2024
Seen and examined at the bedside. No acute events reported overnight. Hypertensive this morning with SBP near 170, otherwise stable on room air
Patient did have low blood glucose at 53 this morning, did not order breakfast and received his insulin. Had some dizziness at the time of the episode that is since resolved after eating and receiving orange and apple juices. Blood sugars improved.
Denies any other new complaints as of this morning. States he starting to feel better from this morning's episode.
Objective Data
-
Labs:
Laboratory Results
12/16/24
07:37
WBC 7.5
Hgb 14.3
Hct 41.9
Plt Count 180
Sodium 135
Potassium 3.7
Chloride 106
Carbon Dioxide 29
BUN 18
Creatinine 0.8
Glucose 108 H
Calcium 8.7
Vital Signs:
Vital Signs
Temp Pulse Resp BP Pulse Ox
97.5 F 77 16 170/110 99
12/16/24 08:14 12/16/24 09:42 12/16/24 08:14 12/16/24 09:42 12/16/24 09:42
I&O
12/15/24 12/16/24 12/17/24
06:59 06:59 06:59
Intake Total 0 / 0 760 / 760
Output Total 250 / 250
Balance -250 / -250 760 / 760
Review of Systems
-
History Source: Patient
All other systems: Reviewed and negative
Physical Exam
-
General: Well Developed, No Apparent Distress and Obese
HEENT: Normocephalic, Atraumatic, Moist Mucous Membranes, Anicteric, PERRLA and Other (Normal H-test)
Respiratory: Clear to Auscultation and Non Labored Respirations; Negative Accessory Resp Muscle Use
Cardiac: Regular Rhythm and S1/S2; Negative Murmur, Rub or Gallop
GI: Soft, Nontender, Nondistended and Normal Bowel Sounds
Musculoskeletal: No Clubbing, No Cyanosis and No Edema
Skin: Warm and Dry; Negative Rash
Neuro: AO x 3, Nonfocal/Grossly Intact and Central Nerve's Intact
Psych: Calm
Data Reviewed
-
Labs: Labs Reviewed by me, Discussed with Nurse and Discussed with Patient
[2024-12-16 11:35] LABS: Glucose - Point of Care 110 mg/dl (70-99)
--- NOTE | 2024-12-16 12:02 | CM ---
Home no needs
Plan; Home no needs.
[2024-12-16] MEDS: NORVASC 2.5 MG PO ×2 (12:14→20:28)
[2024-12-16 13:13] LABS: Glucose - Point of Care 96 mg/dl (70-99)
--- NOTE | 2024-12-16 13:13 | PN.DE.MGMTRT ---
Insulin Management
- -
12/16/24:Diabetes Management Consult Follow up
49 year old male admitted with chest pain, dizziness, facial burning and altered mental status. PMH: HTN, HLD, Right MCA CVA (2022), Diverticulitis and T2DM.
Glucose on admission to the ED was 531 mg/dL.
Pt reports that he was previously seeing an greenskeeper laborer from [facility] and is now managed by LIZ Gay.
States he had an episode of significant hypoglycemia in July 2024, after which his insulin regimen was reduced but doesn't remember the dose it was reduced to. His , at bedside, reports that patient's blood sugar is always elevated, Pt says
that assists with insulin administration at home, and endorses recently persistent hyperglycemia, with CGM consistently reading 'HIGH,' and A1c >12% since July. Current A1c 14.3%, Cr 0.8, eGFR >60.
Pt awake, alert, oriented, resting in bed, able to discuss diabetes care plan. at bedside.
Yesterday received 20 units novolog AC and lantus 50 units BID. glucose range 267 to 117 @ HS. Fasting glucose today 107.
Will continue lantus 50 units BID with novolog 20 units AC with high corrective insulin and farxiga 10 mg daily.
Patient and have poor insight in to the importance of diabetes control. Discussed the treatment on hypoglycemia when at home and states he often drings 2 16 ounce bottles of juice. Discussed treatment should be 4 ounces repeated every 15
minutes until glucose > 70. He only has the logan CGM Discussed the importance of having a back up system to confirm glucose as sensor and fingerstick can be different and that fingerstick is the result treatment should be based on.
Discussed risk of hyperglycemia and uncontrolled diabetes, Emphasized importance of exercise, and adherence to medication and diabetic diet.
Discussed risk of diabetes related acute and chronic complications like CVA, [place], CKD, Diabetic Neuropathy and Retinopathy especially with an A1C that high.
Discussed with nurse.
Will follow.
Diabetes History
- -
Type of Diabetes: 2 requiring insulin
Pre-Admission Diabetes Regimen
12/16/24
07:37
Creatinine 0.8
Lab Results
Hemoglobin A1c 14.3 % (4.0-5.9) H 12/14/24 22:02
Insulin Pump Settings
IP Diabetes Regimen
12/15/24 12/15/24 12/16/24
16:11 20:47 02:38
Glucose
POC Glucose 95 117 H 121 H
12/16/24 12/16/24 12/16/24
07:37 07:58 09:28
Glucose 108 H
POC Glucose 107 H 69 L
12/16/24 12/16/24 12/16/24
09:50 11:33 13:10
Glucose
POC Glucose 81 110 H 96
Meal type: Breakfast
Amount consumed: 100%
Patient Education
[2024-12-16 14:59] LABS: Glucose - Point of Care 68 mg/dl (70-99)
[2024-12-16 15:26] LABS: Glucose - Point of Care 70 mg/dl (70-99)
[2024-12-16 15:58] LABS: Glucose - Point of Care 70 mg/dl (70-99)
[2024-12-16] MEDS: NOVOLOG FLEXPEN-HIGH RESISTANCE SC (16:32)
[2024-12-16] MEDS: LOVENOX 40 MG SC (16:53)
[2024-12-16 17:40] LABS: Glucose - Point of Care 103 mg/dl (70-99)
[2024-12-16] MEDS: NOVOLOG FLEXPEN 10 UNITS SC (18:03)
[2024-12-16 20:03] LABS: Glucose - Point of Care 173 mg/dl (70-99)
[2024-12-16] MEDS: LIPITOR 80 MG PO (20:28)
[2024-12-16] MEDS: TYLENOL 650 MG PO (23:07)
[2024-12-17] VITALS (7 sets, daily range): BP systolic 121–173; BP diastolic 69–105
[2024-12-17 03:00] LABS: Glucose - Point of Care 100 mg/dl (70-99)
[2024-12-17] MEDS: TYLENOL 650 MG PO (04:11)
[2024-12-17 06:06] LABS: Glucose - Point of Care 96 mg/dl (70-99)
[2024-12-17 07:06] LABS: Glucose - Point of Care 85 mg/dl (70-99)
--- NOTE | 2024-12-17 07:23 | PN.DE.MGMTRT ---
Insulin Management
- -
12/17/24:Diabetes Management Consult Follow up
49 year old male admitted with chest pain, dizziness, facial burning and altered mental status. PMH: HTN, HLD, Right MCA CVA (2022), Diverticulitis and T2DM.
Glucose on admission to the ED was 531 mg/dL.
Pt reports that he was previously seeing an bulk pallet builder from [facility] and is now managed by LIZ Gay.
States he had an episode of significant hypoglycemia in July 2024, after which his insulin regimen was reduced but doesn't remember the dose it was reduced to. His , at bedside, reports that patient's blood sugar is always elevated, Pt says
that assists with insulin administration at home, and endorses recently persistent hyperglycemia, with CGM consistently reading 'HIGH,' and A1c >12% since July. Current A1c 14.3%, Cr 0.8, eGFR >60.
Pt awake, alert, oriented, resting in bed, able to discuss diabetes care plan. at bedside.
Yesterday received 20 units novolog AC and lantus 50 units BID. glucose range 67 to 173 @ HS. 3AM glucose 100; fasting glucose today 85.
Will reduce lantus to 45 units BID with novolog 16 units AC and reduce high corrective insulin to low corrective AC and farxiga 10 mg daily.
Patient and have poor insight in to the importance of diabetes control. Discussed the treatment on hypoglycemia when at home and states he often drings 2 16 ounce bottles of juice. Discussed treatment should be 4 ounces repeated every 15
minutes until glucose > 70. He only has the logan CGM Discussed the importance of having a back up system to confirm glucose as sensor and fingerstick can be different and that fingerstick is the result treatment should be based on.
Discussed risk of hyperglycemia and uncontrolled diabetes, Emphasized importance of exercise, and adherence to medication and diabetic diet.
Discussed risk of diabetes related acute and chronic complications like CVA, [place], CKD, Diabetic Neuropathy and Retinopathy especially with an A1C that high.
Discussed with nurse.
Will follow.
Diabetes History
- -
Type of Diabetes: 2 requiring insulin
Pre-Admission Diabetes Regimen
12/16/24
07:37
Creatinine 0.8
Lab Results
Hemoglobin A1c 14.3 % (4.0-5.9) H 12/14/24 22:02
Insulin Pump Settings
IP Diabetes Regimen
12/16/24 12/16/24 12/16/24
07:37 07:58 09:28
Glucose 108 H
POC Glucose 107 H 69 L
12/16/24 12/16/24 12/16/24
09:50 11:33 13:10
Glucose
POC Glucose 81 110 H 96
12/16/24 12/16/24 12/16/24
14:58 15:23 15:55
Glucose
POC Glucose 68 L 70 70
12/16/24 12/16/24 12/17/24
17:38 20:01 02:59
Glucose
POC Glucose 103 H 173 H 100 H
12/17/24 12/17/24
06:05 07:05
Glucose
POC Glucose 96 85
Meal type: Lunch
Meal type: Breakfast
Amount consumed: 100%
Amount consumed: 100%
Patient Education
[2024-12-17 08:04] LABS: Hematocrit 45.5 % (39.0-52.0); Hemoglobin 14.9 g/dL (13.0-18.0); Mean Corp Hgb Conc. 32.7 g/dL (33.0-37.0); Mean Corpuscular Volume 86.0 fL (80.0-94.0); Nucleated Red Blood Cells % 0 % (-); Platelet Count 185 10^3/uL (130-400); Red Cell Dist. Width 13.2 % (11.5-14.5)
--- NOTE | 2024-12-17 08:39 | W.PN.HOSP.TC ---
Today's Communication/Plan
-
Increase amlodipine to 5 mg twice daily
Continue HCTZ/valsartan/metoprolol
ECG and troponin x 1
Continue insulin regimen as is
Hypoglycemic precautions
Assessment / Plan
Assessment / Plan
#IDDM 2 with hyperglycemia
- Has severe insulin resistance; Home regimen Lantus 90 units QAM, NovoLog 25 units AC
- No known microvascular complications though is high risk with A1c 14.3% on labs here
- No signs of ketosis; was started on IV hydration and resumed on home meds upon arrival here
- Diabetes CHANGE MANAGEMENT CONSULTANT started SGLT2i, transitioned Lantus to 50 units twice daily and mealtime aspart to 20 units
- Continue current regimen and monitor ISS usage, uptitrate regimen as needed
- Blood glucose goal 140-180 here
#Primary hypertension
- States he has a prolonged history of hypertension that was first noticed at age 16
- No signs of secondary etiologies; does have history of CVA that may be related to hypertension
- Current regimen includes metoprolol tartrate, valsartan, HCTZ; added amlodipine twice daily
- Increased HCTZ to 25 mg, increase amlodipine to 5 mg twice daily
- Monitor BP and uptitrate regimen as needed
- As needed PO hydralazine for SBP >200 or Sx
#Chest pain
- Intermittent episode of chest discomfort, described as left-sided pressure
- Lower suspicion for ACS as it has spontaneously resolved but does have CAD risks with HTN and IDDM
- Ordered ECG and troponin x 1, continue to monitor on telemetry
- Consider TTE and cardiology consult
- Continue high intensity statin
#H/O CVA
- Unclear etiology, possibly lacunar with known hypertension and diabetes
- No obvious neurodeficits here
Diet: Diabetic, 1800-calorie, 2 g sodium restricted
DVT: SQ Lovenox
Code: Full
Anticipated Discharge: Within 24 hours
Subjective/Interval History
-
Date of Service: December 17, 2024
Seen and examined at the bedside. No acute events reported overnight. AFVSS this morning though remains hypertensive with SBP near 170 mmHg
This complains of some intermittent chest discomfort headache that was improved by time of my assessment. Denies other new complaints, feeling better while having breakfast
Morning glucose 88. Remainder of labs stable
Objective Data
-
Labs:
Laboratory Results
12/17/24
07:34
WBC 6.9
Hgb 14.9
Hct 45.5
Plt Count 185
Sodium Pending
Potassium Pending
Chloride Pending
Carbon Dioxide Pending
BUN Pending
Creatinine Pending
Glucose Pending
Calcium Pending
Vital Signs:
Vital Signs
Temp Pulse Resp BP Pulse Ox
97.6 F 76 18 173/101 98
12/17/24 07:00 12/17/24 07:00 12/17/24 07:00 12/17/24 07:00 12/17/24 07:00
I&O
12/16/24 12/17/24 12/18/24
06:59 06:59 06:59
Intake Total 760 / 760 1300 / 1300
Balance 760 / 760 1300 / 1300
Review of Systems
-
History Source: Patient
All other systems: Reviewed and negative
Physical Exam
-
General: Well Developed, No Apparent Distress and Obese
HEENT: Normocephalic, Atraumatic, Moist Mucous Membranes and Anicteric
Respiratory: Clear to Auscultation and Non Labored Respirations; Negative Accessory Resp Muscle Use
Cardiac: Regular Rhythm and S1/S2; Negative Murmur, Rub or Gallop
GI: Soft, Nontender, Nondistended and Normal Bowel Sounds
Musculoskeletal: No Clubbing, No Cyanosis and No Edema
Skin: Warm and Dry; Negative Rash
Neuro: AO x 3, Nonfocal/Grossly Intact and Central Nerve's Intact
Psych: Calm
Data Reviewed
-
Labs: Labs Reviewed by me and Discussed with Patient
[2024-12-17] MEDS: DIOVAN 320 MG PO (08:40)
[2024-12-17] MEDS: FARXIGA 10 MG PO (08:40)
[2024-12-17] MEDS: NORVASC 2.5 MG PO ×2 (08:41→10:30)
[2024-12-17] MEDS: LOPRESSOR 100 MG PO ×2 (08:41→19:50)
[2024-12-17] MEDS: LOW STRENGTH ASPIRIN 81 MG PO (08:41)
[2024-12-17] MEDS: ORETIC 25 MG PO (08:41)
[2024-12-17 08:44] LABS: Blood Urea Nitrogen 14 mg/dl (9-20); Calcium 8.9 mg/dl (8.4-10.2); Carbon Dioxide 25 mmol/L (22-30); Chloride 106 mmol/L (98-107); Estimated Creatinine Clearance > 125 ml/min; Glucose 77 mg/dl (70-99); Potassium 3.6 mmol/L (3.5-5.1); Sodium 135 mmol/L (135-145); eGFR > 60.00
[2024-12-17 10:16] LABS: Glucose - Point of Care 88 mg/dl (70-99)
[2024-12-17] MEDS: LANTUS 0.45 UNITS SC (10:27)
[2024-12-17 11:12] LABS: Glucose - Point of Care 70 mg/dl (70-99)
[2024-12-17 11:16] LABS: Troponin I < 0.012 ng/ml
[2024-12-17 12:12] LABS: Glucose - Point of Care 127 mg/dl (70-99)
--- NOTE | 2024-12-17 13:07 | CM ---
Chart reviewed home no needs when stable.
Plan; Home no needs.
[2024-12-17 16:29] LABS: Glucose - Point of Care 174 mg/dl (70-99)
[2024-12-17] MEDS: NOVOLOG FLEXPEN 10 UNITS SC (17:38)
[2024-12-17] MEDS: NORVASC 5 MG PO (17:39)
[2024-12-17] MEDS: LOVENOX 40 MG SC (17:39)
[2024-12-17 20:52] LABS: Glucose - Point of Care 254 mg/dl (70-99)
[2024-12-17] MEDS: LIPITOR 80 MG PO (21:04)
[2024-12-17] MEDS: LANTUS 0.35 UNITS SC (21:04)
[2024-12-18 00:12] LABS: Glucose - Point of Care 158 mg/dl (70-99)
[2024-12-18 03:08] VITALS: BP 133/87
[2024-12-18 06:19] LABS: Hematocrit 44.1 % (39.0-52.0); Hemoglobin 14.5 g/dL (13.0-18.0); Mean Corp Hgb Conc. 32.9 g/dL (33.0-37.0); Mean Corpuscular Volume 88.0 fL (80.0-94.0); Nucleated Red Blood Cells % 0 % (-); Platelet Count 190 10^3/uL (130-400); Red Cell Dist. Width 13.3 % (11.5-14.5)
[2024-12-18 06:45] LABS: Blood Urea Nitrogen 16 mg/dl (9-20); Calcium 8.7 mg/dl (8.4-10.2); Carbon Dioxide 30 mmol/L (22-30); Chloride 102 mmol/L (98-107); Estimated Creatinine Clearance 110 ml/min; Glucose 117 mg/dl (70-99); Potassium 3.7 mmol/L (3.5-5.1); Sodium 134 mmol/L (135-145); eGFR > 60.00
--- NOTE | 2024-12-18 07:14 | PN.DE.MGMTRT ---
Insulin Management
- -
12/18/24:Diabetes Management Consult Follow up
49 year old male admitted with chest pain, dizziness, facial burning and altered mental status. PMH: HTN, HLD, Right MCA CVA (2022), Diverticulitis and T2DM.
Glucose on admission to the ED was 531 mg/dL.
Pt reports that he was previously seeing an behavioral health specialist from [facility] and is now managed by LIZ Gay.
States he had an episode of significant hypoglycemia in July 2024, after which his insulin regimen was reduced but doesn't remember the dose it was reduced to. His , at bedside, reports that patient's blood sugar is always elevated, Pt says
that assists with insulin administration at home, and endorses recently persistent hyperglycemia, with CGM consistently reading 'HIGH,' and A1c >12% since July. Current A1c 14.3%, Cr 0.8, eGFR >60.
Pt awake, alert, oriented, resting in bed, able to discuss diabetes care plan. at bedside. Cr 1, eGFR > 60.
Yesterday glucose 85 to 254. Received 45 units lantus in AM, no breakfast of lunch novolog. Pre dinner glucose 174, received 10 units novolog, hs glucose 254. Received 35 units lantus @ HS. 12AM glucose 158
Fasting glucose today 117. Will continue lantus 35 units BID and reduce novolog to 7 units AC with low corrective insulin and farxiga 10 mg daily
Discussed with patient that he is requiring much less insulin here in the hospital. Both patient and agree at home he eats [employer] ice cream, soft pretzels and pizza or hoagies all day. Discussed better nutrition with examples. Offered
dietitian consult they declined.
Patient and have poor insight in to the importance of diabetes control. Discussed the treatment on hypoglycemia when at home and states he often drinks 2 16 ounce bottles of juice. Discussed treatment should be 4 ounces repeated every 15
minutes until glucose > 70. He only has the logan CGM Discussed the importance of having a back up system to confirm glucose as sensor and fingerstick can be different and that fingerstick is the result treatment should be based on.
Discussed risk of hyperglycemia and uncontrolled diabetes, Emphasized importance of exercise, and adherence to medication and diabetic diet.
Discussed risk of diabetes related acute and chronic complications like CVA, [place], CKD, Diabetic Neuropathy and Retinopathy especially with an A1C that high.
Discussed with nurse.
Will follow.
Diabetes History
- -
Type of Diabetes: 2 requiring insulin
Pre-Admission Diabetes Regimen
12/17/24 12/18/24
07:34 05:48
Creatinine 0.7 1.0
Lab Results
Hemoglobin A1c 14.3 % (4.0-5.9) H 12/14/24 22:02
Insulin Pump Settings
IP Diabetes Regimen
12/17/24 12/17/24 12/17/24
07:34 10:11 11:01
Glucose 77
POC Glucose 88 70
12/17/24 12/17/24 12/17/24
12:10 16:27 20:51
Glucose
POC Glucose 127 H 174 H 254 H
12/18/24 12/18/24
00:10 05:48
Glucose 117 H
POC Glucose 158 H
Meal type: Dinner
Meal type: Lunch
Meal type: Breakfast
Amount consumed: 100%
Amount consumed: 100%
Amount consumed: 100%
Patient Education
[2024-12-18 07:25] VITALS: BP 158/93
[2024-12-18 07:41] LABS: Glucose - Point of Care 115 mg/dl (70-99)
--- NOTE | 2024-12-18 08:28 | W.PN.HOSP.TC ---
Today's Communication/Plan
-
Continue with current antihypertensive and antihyperglycemic regimen
Dispo planning
Assessment / Plan
Assessment / Plan
#IDDM 2 with hyperglycemia
- Has severe insulin resistance; Home regimen Lantus 90 units QAM, NovoLog 25 units AC
- No known microvascular complications though is high risk with A1c 14.3% on labs here
- No signs of ketosis; was started on IV hydration and resumed on home meds upon arrival here
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
- Had hypoglycemia; current regimen Lantus 35 units twice daily, aspart 10 units with meals, ISS
- Continue current regimen and monitor ISS usage, uptitrate regimen as needed
- Blood glucose goal 140-180 here
#Primary hypertension
- States he has a prolonged history of hypertension that was first noticed at age 16
- No signs of secondary etiologies; does have history of CVA that may be related to hypertension
- Current regimen includes metoprolol tartrate, valsartan, HCTZ; added amlodipine twice daily
- Increased HCTZ to 25 mg, increase amlodipine to 5 mg twice daily
- Monitor BP and uptitrate regimen as needed
- As needed PO hydralazine for SBP >200 or Sx
#Atypical chest pain
- Suspect that this is associated with his high level of anxiety
- Intermittent episode of chest discomfort, described as left-sided pressure
- Lower suspicion for ACS as it has spontaneously resolved but does have CAD risks with HTN and IDDM
- ECG negative for ischemic findings, troponin normal
#H/O CVA
- Unclear etiology, possibly lacunar with known hypertension and diabetes
- No obvious neurodeficits here
Diet: Diabetic, 1800-calorie, 2 g sodium restricted
DVT: SQ Lovenox
Code: Full
Dispo: Home today
Anticipated Discharge: Today
Subjective/Interval History
-
Date of Service: December 18, 2024
Seen and examined at the bedside. No acute events reported overnight. AFVSS this morning, blood pressure slightly elevated prior to morning meds though improved
Blood sugars improved with reduced doses of Lantus and aspart insulin. No hypoglycemia this morning. Remainder of labs stable
Denies any complaints this morning including chest pain and dyspnea.
Objective Data
-
Labs:
Laboratory Results
12/18/24
05:48
WBC 7.4
Hgb 14.5
Hct 44.1
Plt Count 190
Sodium 134 L
Potassium 3.7
Chloride 102
Carbon Dioxide 30
BUN 16
Creatinine 1.0
Glucose 117 H
Calcium 8.7
Vital Signs:
Vital Signs
Temp Pulse Resp BP Pulse Ox
97.6 F 75 16 133/87 100
12/18/24 03:08 12/18/24 03:08 12/18/24 03:08 12/18/24 03:08 12/18/24 03:08
I&O
12/17/24 12/18/24 12/19/24
06:59 06:59 06:59
Intake Total 1300 / 1300 1440 / 1440
Balance 1300 / 1300 1440 / 1440
Review of Systems
-
History Source: Patient
All other systems: Reviewed and negative
Physical Exam
-
General: Well Developed, Well Nourished, No Apparent Distress and Obese
HEENT: Normocephalic, Atraumatic, Moist Mucous Membranes and Anicteric
Respiratory: Clear to Auscultation and Non Labored Respirations; Negative Accessory Resp Muscle Use
Cardiac: Regular Rhythm and S1/S2; Negative Murmur, Rub or Gallop
GI: Soft, Nontender, Nondistended and Normal Bowel Sounds
Musculoskeletal: No Clubbing, No Cyanosis and No Edema
Skin: Warm and Dry; Negative Rash
Neuro: AO x 3, Nonfocal/Grossly Intact and Central Nerve's Intact
Psych: Calm
Data Reviewed
-
Labs: Labs Reviewed by me, Discussed with Nurse and Discussed with Patient
[2024-12-18] MEDS: FARXIGA 10 MG PO (08:32)
[2024-12-18] MEDS: LANTUS 0.35 UNITS SC (08:32)
[2024-12-18] MEDS: NORVASC 5 MG PO (08:32)
[2024-12-18] MEDS: DIOVAN 320 MG PO (08:32)
[2024-12-18] MEDS: LOPRESSOR 100 MG PO (08:32)
[2024-12-18] MEDS: LOW STRENGTH ASPIRIN 81 MG PO (08:32)
[2024-12-18] MEDS: ORETIC 25 MG PO (08:33)
[2024-12-18] MEDS: NOVOLOG FLEXPEN 10 UNITS SC (09:52)
[2024-12-18 11:29] VITALS: BP 141/84
--- NOTE | 2024-12-18 11:30 | CM ---
Patient seen at bedside on . Patient for discharge home with spouse in room. Patient with no needs at this time. CM will continue to follow for discharge planning needs.
Plan; home no needs
[2024-12-18 11:54] LABS: Glucose - Point of Care 87 mg/dl (70-99)
[2024-12-18] MEDS: NOVOLOG FLEXPEN SC (12:30)
--- NOTE | 2024-12-18 13:57 | W.DCSUMMARY ---
Discharge Summary
Discharge Data
Date of Admission: 12/15/24
Date of Discharge: 12/18/24
Total time spent discharging patient (in min): 36
-
Pending Results: No
Hospital Course
Discharging provider: Aly Lassiter DO
Discharge disposition: Home
Primary discharge diagnoses:
IDDM with hyperglycemia (A1c 14.3%)
Primary hypertension, uncontrolled
Atypical chest pain from anxiety
Medication noncompliance
Chronic discharge diagnoses:
IDDM 2
Primary hypertension
Dyslipidemia
Anxiety
History of CVA
Suspected autism spectrum disorder
Hospital course:
49-year-old male that presented to the hospital with a complaint of chest pain and headache. At time of arrival blood pressure was found to be >240 mmHg systolic. ECG and troponin without elevation or ischemic findings and patient was not treated
for ACS. He was resumed on his home antihypertensive regimen with some improvement to blood pressure however still had elevations throughout afternoon and then later portions of the day. He was started on amlodipine 5 mg twice daily, home HCTZ was
increased to 25 mg daily, continued on valsartan at 320 mg daily. Blood pressure improved and was stable at time of discharge. Recommended that he continues to monitor home blood pressures and take readings with him to his next family doctor
appointment.
Upon arrival to the hospital he was also significantly hyperglycemic with random blood glucose 530. Reported that he stopped taking insulin after he had a low reading with hypoglycemia at home caused him to have symptoms. Did not take insulin
since that time. A1c found to be 14.3%. He was resumed on home insulin regimen though did develop hypoglycemia. Diabetes nurse practitioner consultation helped titrate insulin and he was ultimately discharged on Lantus 35 units twice daily with
insulin aspart 7 units at mealtime. Was also started on SGLT2 inhibitor for optimization of cardiovascular health. Recommend recording home blood sugars and taking readings with him to next office appointment.
Consultants:
Diabetes management � Taylor Manuel NP
Pertinent imaging findings: N/A
Procedures: N/A
Follow-up:
Family doctor within 1 week of discharge
Endocrinology within 1 to 2 weeks of discharge
Monitor home BP readings and blood sugar readings, take to next family doctor's appointment.
Discharge Plan
-
Patient Disposition: Home (Routine Discharge)
Discharge Diagnosis/Procedures: Poorly controlled hypertension
Poorly controlled insulin-dependent diabetes mellitus
Medication noncompliance
Chest pain due to anxiety
Condition: Fair
Diet: Low Cholesterol, Diabetic, Carb Controlled and No added salt
Activity: As tolerated
Additional Activity: Encourage 30 minutes of aerobic exercise daily such as walking or bicycling
Driving Restrictions: No driving for 24 hours
Bathing Restrictions: None
Blood Work: BMP and CBC with differential in 1 week at family doctor's office
Repeat A1c in 3 months
Others Tests: Record blood pressure at home twice daily and booklet and take with you to your next primary care visit
Record your blood sugars with meals and nightly and record them in a booklet to take with you to your next family doctor visit as well
Instructions: Diabetes and diet
Referrals:
[facility] [Outside, Family Practice] - in less than 1 week
Referral Note: If PCP needed
Becky Shetty MD [Consulting Staff, Endocrinology] - in two to three weeks
Referral Note: If new endocrine doctor needed
UNKNOWN - PT NOT,INTERVIEWE [Family Provider]
Additional Discharge Medication Instructions: Take valsartan�hydrochlorothiazide 320 mg - 25 mg now (HCTZ dose was increased)
Start amlodipine 5 mg twice daily as directed
Start dapagliflozin 10 mg daily
New insulin regimen: Lantus 35 units twice daily, aspart insulin 7 units with meals
Start daily aspirin
Continue home atorvastatin 80 mg daily and metoprolol tartrate 100 mg twice daily
Prescriptions:
New
valsartan-hydrochlorothiazide 320-25 mg tablet
1 tab PO DAILY 30 Days Qty: 30 0RF
dapagliflozin propanediol 10 mg Tablet
10 mg PO DAILY 30 Days Qty: 30 0RF
insulin glargine [Lantus Solostar U-100 Insulin] 100 unit/mL (3 mL) insulin pen
35 unit SC BID 30 Days Qty: 21 0RF
aspirin 81 mg Tablet,Chewable
81 mg PO DAILY 30 Days Qty: 30 0RF
amlodipine 5 mg Tablet
5 mg PO BID@0800,1800 30 Days Qty: 60 0RF
sennosides-docusate sodium [Senna Plus] 8.6-50 mg Tablet
1 tab PO BIDPRN PRN (Reason: constipation) Qty: 30 0RF
insulin aspart U-100 100 unit/mL (3 mL) Insulin Pen
7 unit SC AC 30 Days Qty: 6.3 0RF
Continued
atorvastatin 80 mg tablet
80 mg PO HS
metoprolol tartrate 100 mg tablet
100 mg PO BID
Discontinued
valsartan-hydrochlorothiazide 320-12.5 mg tablet
1 tab PO DAILY
insulin glargine [Semglee U-100 Insulin] 100 unit/mL Solution
90 unit SC DAILY
insulin aspart U-100 [Novolog U-100 Insulin aspart] 100 unit/mL Solution
25 unit SC TID
Discharge Orders:
Discharge Patient (As Directed); Ordered 12/18/24
Ordered By: Aly Lassiter
Discharge Date and Time
Print Language: AZERBAIJANI
== END 2024-12-18 15:10 | disposition home or self-care (01) ==
LOC: 4 WEST ACU 01:59
PROVIDERS: Emergency Medicine; ADMITTING PHYSICIAN Internal Medicine; ATTENDING PHYSICIAN Internal Medicine; EMERGENCY PHYSICIAN Student in an Organized Health Care Education/Training Program
DX: E11.65 Type 2 diabetes mellitus with hyperglycemia (principal); R07.89 Other chest pain; R06.02 Shortness of breath; G92.8 Other toxic encephalopathy; R42 Dizziness and giddiness; F41.9 Anxiety disorder, unspecified; T38.3X6A Underdosing of insulin and oral hypoglycemic [antidiabetic] drugs, initial encounter; Z91.128 Patient's intentional underdosing of medication regimen for other reason; Y92.009 Unspecified place in unspecified non-institutional (private) residence as the place of occurrence of the external cause; I10 Essential (primary) hypertension; E88.819 Insulin resistance, unspecified; R00.0 Tachycardia, unspecified; R94.31 Abnormal electrocardiogram [ECG] [EKG]; E78.00 Pure hypercholesterolemia, unspecified; Z79.4 Long term (current) use of insulin; Z79.84 Long term (current) use of oral hypoglycemic drugs; Z86.73 Personal history of transient ischemic attack (TIA), and cerebral infarction without residual deficits; Z87.19 Personal history of other diseases of the digestive system; Z83.3 Family history of diabetes mellitus; Z88.0 Allergy status to penicillin; Z79.899 Other long term (current) drug therapy
CPT/HCPCS: 70450; 80048; 80053; 81003; 81015; 82010; 82805; 82962; 83036; 83735; 84484; 85025; 93005; 99291; G0378

== ENCOUNTER 2024-12-18 17:55 | Emergency (ER) | payer OTHER, SELFPAY ==
[2024-12-18 18:02] VITALS: BP 141/97
--- NOTE | 2024-12-18 18:38 | ED.GENMED ---
History of Present Illness
<Donny Gaspar PA-C - Last Filed: 12/18/24 18:40>
General
Chief Complaint: Chest Pain
Source: patient
Exam Limitations: none
Time Seen by Provider: 12/18/24 18:15
History of Present Illness
History of Present Illness:
49-year-old male presents with the onset of chest pressure tonight around 5:30 PM. He was just discharged from this hospital couple hours ago. He was here for elevated blood pressure and hyperglycemia. His medication regimen was adjusted while
here and his blood pressure improved as did his sugars. He was started on new medicine as well including amlodipine. His hydrochlorothiazide was increased. He denies leg swelling or calf pain. He denies any pleuritic component to the discomfort.
He is not short of breath. Initially when he had this discomfort he was slightly dizzy but that has since resolved. No vomiting.
Past History
<Donny Gaspar PA-C - Last Filed: 12/18/24 18:40>
Past History
ED Past Medical History: CVA (Presumed right MCA stroke August 2022), HTN, Hypercholesterolemia, IDDM, Psychiatric (Anxiety) and Other (Diverticulosis / diverticulitis)
ED Past Surgical History: None
Social History
Tobacco: Non-smoker
Alcohol: None
Drug: None
Personal:
Living: with family
Employment: Employed
Family History
Family History: Diabetes
Phy Exam
<Donny Gaspar PA-C - Last Filed: 12/18/24 18:40>
Physical Exam
Physical Exam:
General: Well-appearing male no acute respiratory distress
HEENT: Normal cephalic atraumatic
Heart: Regular rate and rhythm no murmurs
Lungs: Clear no wheeze
Extremities: No cyanosis no calf tenderness or edema
Skin is warm no rash
Abd: soft, nontender, no gaurding or rebound
Scores
<Ysabel Acosta NP - Last Filed: 12/19/24 23:33>
Heart Score for Chest Pain Patients
STEMI patient?: Not applicable
Course
<Donny Gaspar PA-C - Last Filed: 12/18/24 18:40>
Orders/Labs/Results
Orders:
Orders
12/18/24 17:56
Electrocardiogram (*1) Urgent
Reason for Study: Chest Pain
EKG- Treatment ONCE
12/18/24 19:18
Complete Blood Count/With Diff Urgent
Comprehensive Metabolic Panel Urgent
Lipase Urgent
Troponin I Urgent
12/18/24 21:08
EKG- Treatment ONCE
12/18/24 21:20
Troponin I Urgent
12/18/24 21:30
ECG [Electrocardiogram (*1)] Urgent
Reason for Study: Other
Other Reason for Exam: repeat trop
Cardiology Consult: Unknown
Abnormal Lab Results
12/18/24
19:18
MPV 11.1 H fL
(7.4-10.4)
Sodium 133 L mmol/L
(135-145)
Lipase 12 L U/L
(23-300)
12/18/24 19:18
12/18/24 19:18
Vital Signs
Initial and Last Documented VS:
Initial Vital Signs
Temp Pulse Resp BP Pulse Ox
97.8 F 86 16 141/97 100
12/18/24 18:02 12/18/24 18:02 12/18/24 18:02 12/18/24 18:02 12/18/24 18:02
Last Documented Vital Signs
Temp Pulse Resp BP Pulse Ox
98.7 F 78 20 126/70 98
12/18/24 19:20 12/18/24 22:25 12/18/24 22:25 12/18/24 22:25 12/18/24 22:28
<Ysabel Acosta NP - Last Filed: 12/19/24 23:33>
Orders/Labs/Results
Orders:
Orders
12/18/24 17:56
Electrocardiogram (*1) Urgent
Reason for Study: Chest Pain
EKG- Treatment ONCE
12/18/24 19:18
Complete Blood Count/With Diff Urgent
Comprehensive Metabolic Panel Urgent
Lipase Urgent
Troponin I Urgent
12/18/24 21:08
EKG- Treatment ONCE
12/18/24 21:20
Troponin I Urgent
12/18/24 21:30
ECG [Electrocardiogram (*1)] Urgent
Reason for Study: Other
Other Reason for Exam: repeat trop
Cardiology Consult: Unknown
Abnormal Lab Results
12/18/24
19:18
MPV 11.1 H fL
(7.4-10.4)
Sodium 133 L mmol/L
(135-145)
Lipase 12 L U/L
(23-300)
12/18/24 19:18
12/18/24 19:18
Vital Signs
Initial and Last Documented VS:
Initial Vital Signs
Temp Pulse Resp BP Pulse Ox
97.8 F 86 16 141/97 100
12/18/24 18:02 12/18/24 18:02 12/18/24 18:02 12/18/24 18:02 12/18/24 18:02
Last Documented Vital Signs
Temp Pulse Resp BP Pulse Ox
98.7 F 78 20 126/70 98
12/18/24 19:20 12/18/24 22:25 12/18/24 22:25 12/18/24 22:25 12/18/24 22:28
<Donny Gaspar PA-C - Last Filed: 12/18/24 18:40>
MDM/Problems Addressed
Differential Diagnosis Includes:
Patient with onset of chest pressure this evening. Consider medication side effect versus GERD versus ACS. Pain is not pleuritic vital signs are stable, do not suspect dissection
EKG shows sinus rhythm without ischemic changes. Will check labs including troponin
<Donny Gaspar PA-C - Last Filed: 12/18/24 18:40>
*Pulse Oximetry
SaO2: 100
Oxygen Mode of Delivery: Room air
<Ysabel Acosta NP - Last Filed: 12/19/24 23:33>
*Pulse Oximetry
Patient hypoxic: no
*Critical Care Note
Total Time (30-74mins, 75-104mins- exclusive of procedures): Not Applicable
<Ysabel Acosta NP - Last Filed: 12/19/24 23:33>
Update Note
Update Note:
Second troponin 0.016. He remains symptom-free. Vital signs are stable. Will discharge home as planned. Lab results with patient and spouse will be discharged home tonight and will follow-up with his family doctor in the morning. He was given
instructions on signs and symptoms to return to the emergency department and he is agreeable to this plan.
ED Attending Note
<Donny Gaspar PA-C - Last Filed: 12/18/24 18:40>
-
Portions of this chart may have been created with voice recognition software.� Occasional wrong word or��sound alike� substitutions may have occurred due to the inherent limitations of voice recognition software.
Discharge Plan
Departure
Patient Disposition: Home (Routine Discharge)
Date of Disposition: 12/18/24
Time of Disposition: 22:10
Patient with high blood pressure during this ER visit?: No
Condition: Good
Discharge Problem:
Chest pain
Instructions: Chest Pain PCP Follow Up
Prescriptions:
No Action
atorvastatin 80 mg tablet
80 mg PO HS
metoprolol tartrate 100 mg tablet
100 mg PO BID
valsartan-hydrochlorothiazide 320-25 mg tablet
1 tab PO DAILY 30 Days Qty: 30 0RF
dapagliflozin propanediol 10 mg Tablet
10 mg PO DAILY 30 Days Qty: 30 0RF
aspirin 81 mg Tablet,Chewable
81 mg PO DAILY 30 Days Qty: 30 0RF
amlodipine 5 mg Tablet
5 mg PO BID@0800,1800 30 Days Qty: 60 0RF
sennosides-docusate sodium [Senna Plus] 8.6-50 mg Tablet
1 tab PO BIDPRN PRN (Reason: constipation) Qty: 30 0RF
Novolog FlexPen U-100 Insulin
7 unit SC TID
Semglee U-100 Insulin
35 units SC BID
Referrals:
Shala Drake PA-C [Family Provider, Internal Medicine] - Tomorrow
Activity Restrictions/Additional Instructions:
Return to the emergency department immediately for any changes in/worsening of your symptoms.
Interventions
Interventions:
*Risk Screen - Suicide Last Done: 12/18/24 18:02
*General Assessment Last Done: 12/18/24 19:20
*Neglect/Abuse Screening Last Done: 12/18/24 18:02
*ED- Fall Risk Assessment Last Done: 12/18/24 19:20
*ED COVID-19 Vaccine History Last Done: 12/18/24 19:20
*ED Influenza Vaccine History Last Done: 12/18/24 19:20
*Nursing Disposition Last Done: 12/18/24 22:28
ED- Cardiac Assessment Last Done: 12/18/24 19:20
Discharge Date and Time
Discharge Date/Time: 12/18/24 22:29
Print Language: TURKMEN
[2024-12-18 19:20] VITALS: BP 126/57; BMI 36.4
[2024-12-18 19:33] LABS: Hematocrit 47.3 % (39.0-52.0); Hemoglobin 15.8 g/dL (13.0-18.0); Mean Corp Hgb Conc. 33.4 g/dL (33.0-37.0); Mean Corpuscular Volume 84.8 fL (80.0-94.0); Nucleated Red Blood Cells % 0 % (-); Platelet Count 205 10^3/uL (130-400); Red Cell Dist. Width 13.3 % (11.5-14.5)
[2024-12-18 19:48] LABS: ALT (SGPT) 43 U/L (0-50); AST (SGOT) 49 U/L (17-59); Albumin 3.5 g/dl (3.5-5.0); Alkaline Phosphatase 47 U/L (38-126); Blood Urea Nitrogen 18 mg/dl (9-20); Calcium 9.1 mg/dl (8.4-10.2); Carbon Dioxide 30 mmol/L (22-30); Chloride 101 mmol/L (98-107); Estimated Creatinine Clearance 123 ml/min; Glucose 86 mg/dl (70-99); Lipase 12 U/L (23-300); Potassium 4.1 mmol/L (3.5-5.1); Sodium 133 mmol/L (135-145); Total Protein 6.6 g/dl (6.3-8.2); eGFR > 60.00
[2024-12-18 19:59] LABS: Troponin I 0.018 ng/ml
[2024-12-18 20:40] VITALS: BP 124/86
[2024-12-18 22:03] LABS: Troponin I 0.016 ng/ml
[2024-12-18 22:25] VITALS: BP 126/70
== END 2024-12-18 22:29 | disposition home or self-care (01) ==
LOC: EMR 17:55
PROVIDERS: Physician Assistant; EMERGENCY PHYSICIAN Emergency Medicine; FAMILY PHYSICIAN Physician Assistant
DX: R07.9 Chest pain, unspecified (principal); I10 Essential (primary) hypertension; E78.00 Pure hypercholesterolemia, unspecified; Z86.73 Personal history of transient ischemic attack (TIA), and cerebral infarction without residual deficits; E11.9 Type 2 diabetes mellitus without complications; Z79.899 Other long term (current) drug therapy
CPT/HCPCS: 99284; 80053; 83690; 84484; 85025; 93005

== ENCOUNTER 2024-12-22 10:19 | Emergency (ER) | payer OTHER, SELFPAY ==
[2024-12-22 10:29] VITALS: BP 128/91
[2024-12-22 10:57] VITALS: BMI 16.2
[2024-12-22 11:00] VITALS: BP 148/109
--- NOTE | 2024-12-22 11:07 | ED.GENMED ---
History of Present Illness
General
Chief Complaint: Chest Pain
Time Seen by Provider: 12/22/24 11:06
Nursing documentation reviewed up to this point in time: agreed with
History of Present Illness
History of Present Illness:
49-year-old male presents to the ER with his for evaluation of elevated blood pressure and chest pain which have been present since awakening this morning. Patient reports the pain is worse with movement. He did not take any of his routine IM
meds prior to going to a PCP appointment this morning. He was identified to have elevated blood pressure prompting referral to the ER. Patient also states he has been having daily headaches, unchanged over the last several weeks. He has not had
any pain relievers today. No vomiting. No fevers. No shortness of breath. Patient denies peripheral edema. No prior personal history of pulmonary embolism.
Past History
Past History
ED Past Medical History: CVA (Presumed right MCA stroke August 2022), HTN, Hypercholesterolemia, IDDM, Psychiatric (Anxiety) and Other (Diverticulosis / diverticulitis)
ED Past Surgical History: None
Social History
Tobacco: Non-smoker
Alcohol: None
Drug: None
Personal:
Living: with family
Employment: Employed
Family History
Family History: Diabetes
Review of Systems
Review of Systems
Allergies reviewed?: Yes
Phy Exam
Physical Exam
Physical Exam:
Patient is awake, alert, appears in no acute distress, preferring to keep eyes closed during entire interaction other than when I ask him to open them for physical exam, head is NCAT, PERRL, EOMI mucous membranes moist, conjunctiva pink, heart
regular rate and rhythm without murmurs or ectopy, lungs are clear to auscultation without wheezes rales or rhonchi, no JVD, abdomen is soft and nontender on palpation, extremities without edema, GCS is 15
Scores
Heart Score for Chest Pain Patients
STEMI patient?: No
History: Slightly or Non-Suspicious
ECG: Nonspecific Repolarization
Age: >45 - <65 years
Risk Factors: >/= 3 Risk Factors or History of CAD
Troponin: </= Normal Limit
Heart Score for Chest Pain Patients: 4
Heart Score Risk: 20.3% MACE over next 6 weeks
Course
Orders/Labs/Results
Orders:
Orders
12/22/24 10:22
Electrocardiogram (*1) Urgent
Reason for Study: Chest Pain
EKG- Treatment ONCE
12/22/24 11:20
Acetaminophen [Tylenol] 1,000 mg PO NOW STA
Hydrochlorothiazide [Oretic] 25 mg PO NOW STA
Metoprolol [Lopressor] 100 mg PO NOW STA
Pulse Ox/cont/shift [RESP] Stat
Quantity: 1
12/22/24 11:21
Cardiac Monitoring- Treatment ONCE
Amlodipine [Norvasc] 5 mg PO ONCE ONE
CR Chest - 2 Views Urgent
Comment:
Reason For Exam: chest pain
12/22/24 11:24
Valsartan [Diovan] 320 mg PO ONCE ONE
12/22/24 11:45
Basic Metabolic Panel Urgent
Complete Blood Count/No Diff Urgent
D-Dimer Urgent
Magnesium Urgent
Troponin I Urgent
12/22/24 13:01
0.9% Sodium Chloride 500 ml [Nss] 500 ml IV BOLUS
Abnormal Lab Results
12/22/24
11:45
MPV 11.1 H fL
(7.4-10.4)
Sodium 134 L mmol/L
(135-145)
BUN 44 H mg/dl
(9-20)
Glucose 180 H mg/dl
(70-99)
Magnesium 2.4 H mg/dl
(1.6-2.3)
12/22/24 11:45
12/22/24 11:45
CBC within normal limits. Electrolytes reveal elevated BUN, creatinine preserved. Blood sugar slightly elevated at 180, no evidence for DKA based on normal CO2
Vital Signs
Initial and Last Documented VS:
Initial Vital Signs
Temp Pulse Resp BP Pulse Ox
98.1 F 88 16 128/91 98
12/22/24 10:29 12/22/24 10:29 12/22/24 10:29 12/22/24 10:29 12/22/24 10:29
Last Documented Vital Signs
Temp Pulse Resp BP Pulse Ox
98.4 F 70 17 143/86 98
12/22/24 11:06 12/22/24 14:00 12/22/24 14:00 12/22/24 14:00 12/22/24 11:10
MDM/Problems Addressed
Differential Diagnosis Includes:
Differential diagnosis to consider but not limited to hypertensive emergency, ACS, pulmonary embolism given recent hospitalization, muscle spasm, somatoform disorder along with other etiologies considered
Chronic conditions affecting care:
Hypertension, hyperlipidemia, diabetes, TIA
*Radiology
Radiology exam reviewed: preliminary read by ED provider (I independently viewed and interpreted two-view chest x-ray showing no acute process, normal cardiac silhouette, no infiltrates) and radiology read reviewed (clear lungs, no change compared
to prior)
*Pulse Oximetry
SaO2: 98
Oxygen Mode of Delivery: Room air
Patient hypoxic: no
*EKG
Interpreted by ED Provider?: Yes (I independently viewed and interpreted twelve-lead EKG showing normal sinus rhythm, no ectopy, rate 86, normal axis, nonspecific T wave changes in the lateral leads without ST elevation, this is similar to prior
from 12/18/2024)
*Senior Audit Manager Interpretation
Rate: normal (I independently viewed and interpreted rhythm strip showing normal sinus rhythm, no ectopy)
*Critical Care Note
Total Time (30-74mins, 75-104mins- exclusive of procedures): Not Applicable
Data Reviewed
Review of Other/Old Records Reveals: Discharge Summary (I reviewed discharge summary dated 12/18/2024, Dr. Lassiter. Patient had been admitted to the hospital for treatment of uncontrolled hypertension with hyperosmolar hyperglycemia state)
Update Note
Update Note:
Will give patient's routine a.m. antihypertensives and a dose of Tylenol for his discomforts given benign appearance of EKG. Awaiting labs. Patient and present bedside agree with plan at current.
1300: Will give small IV fluid bolus given bump in BUN as this may be contributing to patient's overall feeling unwell. Blood pressure improved. Troponin negative-low suspicion for pain being related to ACS
1430: Patient sleeping comfortably. Pain resolved with medications administered. I discussed with present at bedside need to take his blood pressure medications routinely as scheduled. I discussed with them benefit of follow-up with
cardiology in the office for reevaluation and further care-labs here are very reassuring, including negative D-dimer. They feel comfortable with plan and have no questions at the current time
Patient was able to ambulate out of department with a steady gait and no assistance
ED Attending Note
-
Portions of this chart may have been created with voice recognition software.� Occasional wrong word or��sound alike� substitutions may have occurred due to the inherent limitations of voice recognition software.
Discharge Plan
Departure
Patient Disposition: Home (Routine Discharge)
Date of Disposition: 12/22/24
Time of Disposition: 14:35
Patient with high blood pressure during this ER visit?: Yes
Discharge Problem:
Chest pain
Instructions: Chest Pain DCA Follow Up
Prescriptions:
No Action
atorvastatin 80 mg tablet
80 mg PO HS
metoprolol tartrate 100 mg tablet
100 mg PO BID
valsartan-hydrochlorothiazide 320-25 mg tablet
1 tab PO DAILY 30 Days Qty: 30 0RF
dapagliflozin propanediol 10 mg Tablet
10 mg PO DAILY 30 Days Qty: 30 0RF
aspirin 81 mg Tablet,Chewable
81 mg PO DAILY 30 Days Qty: 30 0RF
amlodipine 5 mg Tablet
5 mg PO BID@0800,1800 30 Days Qty: 60 0RF
sennosides-docusate sodium [Senna Plus] 8.6-50 mg Tablet
1 tab PO BIDPRN PRN (Reason: constipation) Qty: 30 0RF
Novolog FlexPen U-100 Insulin
7 unit SC TID
Semglee U-100 Insulin
35 units SC BID
Referrals:
Shala Drake PA-C [Family Provider, Internal Medicine]
Activity Restrictions/Additional Instructions:
Please take all of your medications as prescribed. Please increase water intake-you should be drinking eight 8 ounce glasses of water daily. Please contact cardiology office to schedule appointment for reevaluation and further care. Return to
the ER for any
Interventions
Interventions:
*Risk Screen - Suicide Last Done: 12/22/24 10:29
*General Assessment Last Done: 12/22/24 10:29
*Neglect/Abuse Screening Last Done: 12/22/24 10:29
*ED- Fall Risk Assessment Last Done: 12/22/24 10:57
*ED COVID-19 Vaccine History Last Done: 12/22/24 10:57
*ED Influenza Vaccine History Last Done: 12/22/24 10:57
*Nursing Disposition Last Done: 12/22/24 14:49
ED- Cardiac Assessment Last Done: 12/22/24 10:57
Discharge Date and Time
Discharge Date/Time: 12/22/24 14:52
Print Language: PANAMANIAN
[2024-12-22] MEDS: ORETIC 25 MG PO (11:50)
[2024-12-22] MEDS: NORVASC 5 MG PO (11:50)
[2024-12-22] MEDS: TYLENOL 1000 MG PO (11:50)
[2024-12-22] MEDS: DIOVAN 320 MG PO (11:50)
[2024-12-22] MEDS: LOPRESSOR 100 MG PO (11:50)
[2024-12-22 11:53] LABS: Hematocrit 45.8 % (39.0-52.0); Hemoglobin 15.2 g/dL (13.0-18.0); Mean Corp Hgb Conc. 33.2 g/dL (33.0-37.0); Mean Corpuscular Volume 86.7 fL (80.0-94.0); Platelet Count 194 10^3/uL (130-400); Red Cell Dist. Width 13.1 % (11.5-14.5)
[2024-12-22 12:12] LABS: D-Dimer 0.46 ug/mlFEU (0.00-0.50)
[2024-12-22 12:14] LABS: Blood Urea Nitrogen 44 mg/dl (9-20); Calcium 9.0 mg/dl (8.4-10.2); Carbon Dioxide 26 mmol/L (22-30); Chloride 104 mmol/L (98-107); Estimated Creatinine Clearance 70 ml/min; Glucose 180 mg/dl (70-99); Magnesium 2.4 mg/dl (1.6-2.3); Potassium 4.4 mmol/L (3.5-5.1); Sodium 134 mmol/L (135-145); eGFR > 60.00
[2024-12-22 12:24] LABS: Troponin I < 0.012 ng/ml
[2024-12-22 13:05] VITALS: BP 152/100
[2024-12-22] MEDS: NSS 500 IV (13:10)
[2024-12-22 13:23] VITALS: BP 141/96
[2024-12-22 14:00] VITALS: BP 143/86
== END 2024-12-22 14:52 | disposition home or self-care (01) ==
LOC: EMR 10:19
PROVIDERS: EMERGENCY PHYSICIAN Emergency Medicine; FAMILY PHYSICIAN Physician Assistant
DX: R07.89 Other chest pain (principal); I10 Essential (primary) hypertension; E11.9 Type 2 diabetes mellitus without complications; E78.00 Pure hypercholesterolemia, unspecified; I25.10 Atherosclerotic heart disease of native coronary artery without angina pectoris; Z83.3 Family history of diabetes mellitus; Z86.73 Personal history of transient ischemic attack (TIA), and cerebral infarction without residual deficits
CPT/HCPCS: 99283; 71046; 80048; 83735; 84484; 85027; 85379; 93005

== ENCOUNTER → 2025-01-13 07:18 | Outpatient (REF) | payer OTHER, SELFPAY | LOC: HWRCS 07:18 | PROVIDERS: ATTENDING PHYSICIAN Internal Medicine Cardiovascular Disease; FAMILY PHYSICIAN Physician Assistant | DX: R07.9 Chest pain, unspecified (principal); G45.9 Transient cerebral ischemic attack, unspecified; I10 Essential (primary) hypertension; E78.1 Pure hyperglyceridemia | CPT/HCPCS: 78452; 93017; A9500; J2785 ==